=== PATIENT | female | born 1980 | race Caucasian/White ===

== ENCOUNTER 2016-09-17 12:30 | Emergency (ER) | payer BC ==
[2016-09-17] MEDS ORDERED: Ibuprofen TAB* 600 MG PO ONE (14:13)
--- NOTE | 2016-09-17 14:20 | ED ---
Headache - HPI Summary HPI Summary: 36 female presents with complaints of having an episode of hyperventilating, hands falling asleep, "head cevallos", and dizziness that last about 1 hour. Patient 's episode began 2 hours ago and has since resolved. Patient was seen at urgent care. Patient has a history of anxiety that she takes medication for however has not taken her amitryptiline for the past couple of days because she ran out. Patient also states she kissed her boyfriend who had a suboxone pill sublingual and was afraid she had a reaction to that as patient is very sensitive to medication, per patient. Denies chest pain, SOB, difficulty breathing, cough, fever/chills, numbness/tingling. Denies nausea and vomiting. Patient has no significant PMHx. She has a mild headache that she describes as pressure, diffuse and is significantly better. She feels much better she is just tired. No neuro deficit complaints. Denies visual changes, weakness, and any recent trauma/injury. - History Of Current Complaint Chief Complaint: EDGeneral Stated Complaint: DIZZY/SHAKEY / CHEST TIGHTNESS Time Seen by Provider: 09/17/16 13:45 Hx Obtained From: Patient Hx Last Menstrual Period: 08/24/16 Onset/Duration: Sudden Onset, Started hours ago, Resolved Currently Pain Is: Current Pain Scale(0-10)= - 3 Timing: Constant Character: Pressure, Typical Headache Location of Headache: Diffuse Aggravating Factor: Bright Lights Allevating Factors: Rest Associated Signs And Symptoms: Dizziness, Nausea - Allergies/Home Medications Allergies/Adverse Reactions: Allergies Allergy/AdvReac Type Severity Reaction Status Date / Time No Known Allergies Allergy Verified 12/18/15 09:16 PMH/Surg Hx/FS Hx/Imm Hx Endocrine/Hematology History: Denies: Hx Diabetes, Hx Thyroid Disease Cardiovascular History: Denies: Hx Hypertension, Other Cardiovascular Problems/Disorders - gallbladder removal 12/2010 Respiratory History: Denies: Hx Asthma, Hx Chronic Obstructive Pulmonary Disease (COPD) GI History: Denies: Hx Ulcer Psychiatric History: Reports: Hx Anxiety - takes prn benzos, Hx Depression - Surgical History Surgery Procedure, Year, and Place: greg Infectious Disease History: No Infectious Disease History: Denies: Hx Clostridium Difficile, Hx Hepatitis, Hx Human Immunodeficiency Virus (HIV), Hx of Known/Suspected MRSA, Hx Shingles, Hx Tuberculosis, Traveled Outside the [place] in Last 30 Days - Family History Known Family History: Positive: Cardiac Disease, Hypertension, Diabetes - Social History Alcohol Use: Daily Substance Use Type: Reports: None Smoking Status (MU): Never Smoked Tobacco Review of Systems Constitutional: Negative Eyes: Negative ENT: Negative Cardiovascular: Negative Positive: Other - hyperventilating, since resolved Positive: Nausea Genitourinary: Negative Neurological: Other - dizziness Positive: Headache All Other Systems Reviewed And Are Negative: Yes Physical Exam Triage Information Reviewed: Yes Vital Signs On Initial Exam: Initial Vitals Temp Pulse Resp BP Pulse Ox 98.5 F 96 20 154/100 100 09/17/16 12:33 09/17/16 12:33 09/17/16 12:33 09/17/16 12:33 09/17/16 12:33 patient was anxious upon arrival, BP improved during visit and was 138/90 at discharge. pulse 94bpm not 24 as accidentally typed. Vital Signs Reviewed: Yes Appearance: Positive: Well-Appearing, No Pain Distress, Well-Nourished Skin: Positive: Warm, Skin Color Reflects Adequate Perfusion, Dry Head/Face: Positive: Normal Head/Face Inspection. Negative: Temporal Artery Tenderness, TMJ Tenderness, Scalp Eyes: Positive: Normal, EOMI, XUAN, Conjunctiva Clear ENT: Positive: Normal ENT inspection, Hearing grossly normal, Pharynx normal, TMs normal. Negative: Pharyngeal erythema Dental: Negative: Percussion Tenderness @, Cervical Lymphadenopathy Neck: Positive: Supple, Nontender Respiratory/Lung Sounds: Positive: Clear to Auscultation, Breath Sounds Present. Negative: Rales, Rhonchi, Wheezes Cardiovascular: Positive: Normal, RRR, Pulses are Symmetrical in both Upper and Lower Extremities Abdomen Description: Positive: Nontender, No Organomegaly, Soft Bowel Sounds: Positive: Present Musculoskeletal: Positive: Normal, Strength/ROM Intact - all extremities. Negative: Limited @, Interruption @, Pain @, Edema Left, Edema Right Neurological: Positive: Normal, Sensory/Motor Intact - sensation, memory and concentration intact., Alert, Oriented to Person Place, Time, CN Intact II-III, Reflexes Intact, NV Bundle Intact Distally, Normal Gait, Rhomberg - negative, Heel to Toe - normal, Finger to Nose - normal, Facial Symmetry, Speech Normal. Negative: Facial Droop, Slurred Speech, Dysphagia Psychiatric: Positive: Normal AVPU Assessment: Alert - Joao Coma Scale Best Eye Response: 4 - Spontaneous Best Motor Response: 6 - Obeys Commands Best Verbal Response: 5 - Oriented Diagnostics - Vital Signs Vital Signs Temp Pulse Resp BP Pulse Ox 09/17/16 13:25 98.2 F 84 20 137/96 100 09/17/16 12:37 98.2 F 24 20 147/100 100 09/17/16 12:33 98.5 F 96 20 154/100 100 - Laboratory Lab Statement: Any lab studies that have been ordered have been reviewed, and results considered in the medical decision making process. Headache Course/Dx - Course Course Of Treatment: patients PE findings and vital signs were normal while in ED. No neurologic deficit or concern at this time. HPI symptoms had resolved and patient was feeling much better with a mild headache and feeling tired. Patient appears to had suffered a panic attack that has since improved. Has anxiety and has not taken her presribed amitryptiline for the past couple of days since she has been out. No concern for any emergent issues at this time, requiring further workup or imaging. Patient agreed and wanted to go home. Given ibuprofen for headache. Educated on worsening signs and symptoms to watch out for and to return for immediately. Follow up with primary care. Continue taking anxiety medication and speak with doctor about refill. Bp elevated upon arrival however improved during visit and once patient calmed down. Still recommended follow up for re-check wit PCP. - Diagnoses Differential Diagnosis/HQI/PQRI: Migraine, Sinus Headache, Tension Headache, Viral Syndrome, Other Provider Diagnoses: Panic attack, Anxiety, Headache Discharge - Discharge Plan Condition: Stable Disposition: HOME Patient Education Materials: Panic Attack (ED), General Headache (ED) Referrals: Talia Lee MD [Primary Care Provider] - Additional Instructions: Take ibuprofen OTC for pain and headache. If you have worsening symptoms or new symptoms please return to ED promptly such as worsening headache, chest pain, SOB, fever/chills, vomiting, visual changes, weakness. Rest and drink plenty of fluids. Follow up with PCP within 5-7 days and to re-check BP.
[2016-09-17 14:32] VITALS: BP 137/94
== END 2016-09-17 14:31 | disposition home or self-care (01) ==
LOC: ED 12:30
DX: F41.0 Panic disorder [episodic paroxysmal anxiety] (principal); R51 Headache
CPT/HCPCS: 93005; 99282; A9270-GY

== ENCOUNTER 2017-01-23 16:36 | Emergency (ER) | payer BC ==
[2017-01-23 18:15] LABS: Hematocrit 36 % (35-47); Mean Corpuscular HGB Conc 33 g/dl (31-36); Mean Corpuscular Hemoglobin 30 pg (27-31); Mean Corpuscular Volume 91 fL (80-97); Mean Platelet Volume 7 um3 (7.4-10.4); Red Blood Count 3.97 10^6/ul (4.0-5.4); Red Cell Distribution Width 13 % (10.5-15); White Blood Count 7.4 10^3/ul (3.5-10.8)
[2017-01-23 18:32] LABS: Albumin 3.9 g/dL (3.2-5.2); BUN/Creatinine Ratio 10.7 (8-20); C Reactive Protein 131.36 mg/L (< 5.00); Calcium 9.2 mg/dL (8.6-10.3); EGFR African American 110.6 (>60); Globulin 3.4 g/dL (2-4); Potassium 3.8 mmol/L (3.5-5.0); Total Bilirubin 0.2 mg/dL (0.2-1.0); Total Protein 7.3 g/dL (6.4-8.9)
--- NOTE | 2017-01-23 18:33 | RAD ---
Indication: Right upper quadrant pain. Real-time sonography of the right upper quadrant was performed. The liver measures 17.8 cm in length. There are small echogenic masses scattered throughout the neena hepatis and right lobe of liver which may represent small hemangiomas. However these were not identified previously. Correlation with MR could BE performed for further evaluation. The common duct measures 3 mm. The patient is status post cholecystectomy. The right kidney measures 10.8 x 4.7 x 4.5 cm with prominent right caliectasis. The pancreatic head, neck and proximal body demonstrates no mass or pancreatic duct dilatation. IMPRESSION: Patient is status post cholecystectomy. Echogenic masses in the right lobe of liver and neena hepatis may represent small hemangiomas. Nonemergent MRI could BE performed for further evaluation.
[2017-01-23 18:38] LABS: Urine Bacteria Absent (Absent); Urine Bilirubin Negative (Negative); Urine Glucose Negative (Negative); Urine Nitrite Negative (Negative)
[2017-01-23 20:09] VITALS: BP 128/92
--- NOTE | 2017-01-23 21:26 | ED ---
Gail Chavira Edward, scribed for Almas Martinez MD on 01/23/17 at 1701 . Abdominal Pain/Female - HPI Summary HPI Summary: 37 y/o female presents to ED c/o intermittent ABD pain in the RUQ that radiates into her R shoulder starting two days ago. The pain is described as a soreness. It is aggravated with food and coffee especially. Pt had a fever 2 nights ago. Associated sx: nausea, diarrhea, belching. SHx hernia repair, cholecystectomy. - History of Current Complaint Chief Complaint: EDAbdPain Stated Complaint: SHARP ABD PAIN Time Seen by Provider: 01/23/17 16:55 Hx Obtained From: Patient Hx Last Menstrual Period: 08/24/16 Onset/Duration: Lasting Days Timing: Intermittent Episode Lasting Pain Intensity: 0 Location: Discrete At: RUQ, Epigastric Radiates: Yes Radiates to: Other - R shoulder Character: Other: - soreness Aggravating Factor(s): Food - and coffee especially Associated Signs and Symptoms: Positive: Fever, Nausea, Diarrhea, Other: - belching Allergies/Adverse Reactions: Allergies Allergy/AdvReac Type Severity Reaction Status Date / Time No Known Allergies Allergy Verified 01/23/17 16:44 PMH/Surg Hx/FS Hx/Imm Hx Previously Healthy: No Endocrine/Hematology History: Denies: Hx Diabetes, Hx Thyroid Disease Cardiovascular History: Denies: Hx Hypertension, Other Cardiovascular Problems/Disorders - gallbladder removal 12/2010 Respiratory History: Denies: Hx Asthma, Hx Chronic Obstructive Pulmonary Disease (COPD) GI History: Denies: Hx Ulcer Psychiatric History: Reports: Hx Anxiety - takes prn benzos, Hx Depression - Surgical History Surgery Procedure, Year, and Place: greg Infectious Disease History: No Infectious Disease History: Denies: Hx Clostridium Difficile, Hx Hepatitis, Hx Human Immunodeficiency Virus (HIV), Hx of Known/Suspected MRSA, Hx Shingles, Hx Tuberculosis, Traveled Outside the [place] in Last 30 Days - Family History Known Family History: Positive: Cardiac Disease, Hypertension, Diabetes - Social History Alcohol Use: Daily Hx Substance Use: No Substance Use Type: Reports: None Hx Tobacco Use: No Smoking Status (MU): Never Smoked Tobacco Review of Systems Positive: Fever Eyes: Negative ENT: Negative Cardiovascular: Negative Respiratory: Negative Positive: Abdominal Pain, Diarrhea, Nausea, Other - Belching Genitourinary: Negative Musculoskeletal: Negative Skin: Negative Neurological: Negative Psychological: Normal All Other Systems Reviewed And Are Negative: Yes Physical Exam Triage Information Reviewed: Yes Vital Signs On Initial Exam: Initial Vitals Temp Pulse Resp BP Pulse Ox 97.0 F 93 17 135/94 99 01/23/17 16:39 01/23/17 16:39 01/23/17 16:39 01/23/17 16:39 01/23/17 16:39 Vital Signs Reviewed: Yes Appearance: Positive: Well-Appearing, No Pain Distress Skin: Positive: Warm, Skin Color Reflects Adequate Perfusion, Dry, Other - No icterus. Head/Face: Positive: Normal Head/Face Inspection Eyes: Positive: Normal ENT: Positive: Normal ENT inspection Neck: Positive: Supple, Nontender Respiratory/Lung Sounds: Positive: Clear to Auscultation, Breath Sounds Present Cardiovascular: Positive: RRR Abdomen Description: Positive: Soft, Other: - Tender @ RUQ and less so @ epigastrium. Bowel Sounds: Positive: Present Diagnostics - Vital Signs Vital Signs Temp Pulse Resp BP Pulse Ox 01/23/17 16:39 97.0 F 93 17 135/94 99 - Laboratory Lab Results: Lab Results 01/23/17 01/23/17 01/23/17 Range/Units 17:28 17:28 17:28 WBC 7.4 (3.5-10.8) 10^3/ul RBC 3.97 L (4.0-5.4) 10^6/ul Hgb 12.0 (12.0-16.0) g/dl Hct 36 (35-47) % MCV 91 (80-97) fL MCH 30 (27-31) pg MCHC 33 (31-36) g/dl RDW 13 (10.5-15) % Plt Count 372 (150-450) 10^3/ul MPV 7 L (7.4-10.4) um3 Neut % (Auto) 52.0 (38-83) % Lymph % (Auto) 37.0 (25-47) % [place] % (Auto) 7.1 (1-9) % Eos % (Auto) 1.9 (0-6) % Baso % (Auto) 2.0 (0-2) % Absolute Neuts (auto) 3.8 (1.5-7.7) 10^3/ul Absolute Lymphs (auto) 2.7 (1.0-4.8) 10^3/ul Absolute Monos (auto) 0.5 (0-0.8) 10^3/ul Absolute Eos (auto) 0.1 (0-0.6) 10^3/ul Absolute Basos (auto) 0.1 (0-0.2) 10^3/ul Absolute Nucleated RBC 0 10^3/ul Nucleated RBC % 0 Sodium 135 (133-145) mmol/L Potassium 3.8 (3.5-5.0) mmol/L Chloride 104 (101-111) mmol/L Carbon Dioxide 25 (22-32) mmol/L Anion Gap 6 (2-11) mmol/L BUN 8 (6-24) mg/dL Creatinine 0.75 (0.51-0.95) mg/dL Est GFR ( Amer) 110.6 (>60) Est GFR (Non-Af Amer) 86.0 (>60) BUN/Creatinine Ratio 10.7 (8-20) Glucose 104 H (70-100) mg/dL Lactic Acid 1.0 (0.5-2.0) mmol/L Calcium 9.2 (8.6-10.3) mg/dL Total Bilirubin 0.20 (0.2-1.0) mg/dL AST 13 (13-39) U/L ALT 18 (7-52) U/L Alkaline Phosphatase 53 (34-104) U/L C-Reactive Protein 131.36 H (< 5.00) mg/L Total Protein 7.3 (6.4-8.9) g/dL Albumin 3.9 (3.2-5.2) g/dL Globulin 3.4 (2-4) g/dL Albumin/Globulin Ratio 1.1 (1-3) Lipase 41 (11.0-82.0) U/L Beta HCG, Quant 0.82 mIU/mL Urine Color Urine Appearance Urine pH (5-9) Ur Specific [place] (1.010-1.030) Urine Protein (Negative) Urine Ketones (Negative) Urine Blood (Negative) Urine Nitrate (Negative) Urine Bilirubin (Negative) Urine Urobilinogen (Negative) Ur Leukocyte Esterase (Negative) Urine WBC (Auto) (Absent) Urine RBC (Auto) (Absent) Ur Squamous Epith Cells (Absent) Urine Bacteria (Absent) Urine Glucose (Negative) 09/24/17 Range/Units 18:07 WBC (3.5-10.8) 10^3/ul RBC (4.0-5.4) 10^6/ul Hgb (12.0-16.0) g/dl Hct (35-47) % MCV (80-97) fL MCH (27-31) pg MCHC (31-36) g/dl RDW (10.5-15) % Plt Count (150-450) 10^3/ul MPV (7.4-10.4) um3 Neut % (Auto) (38-83) % Lymph % (Auto) (25-47) % [place] % (Auto) (1-9) % Eos % (Auto) (0-6) % Baso % (Auto) (0-2) % Absolute Neuts (auto) (1.5-7.7) 10^3/ul Absolute Lymphs (auto) (1.0-4.8) 10^3/ul Absolute Monos (auto) (0-0.8) 10^3/ul Absolute Eos (auto) (0-0.6) 10^3/ul Absolute Basos (auto) (0-0.2) 10^3/ul Absolute Nucleated RBC 10^3/ul Nucleated RBC % Sodium (133-145) mmol/L Potassium (3.5-5.0) mmol/L Chloride (101-111) mmol/L Carbon Dioxide (22-32) mmol/L Anion Gap (2-11) mmol/L BUN (6-24) mg/dL Creatinine (0.51-0.95) mg/dL Est GFR ( Amer) (>60) Est GFR (Non-Af Amer) (>60) BUN/Creatinine Ratio (8-20) Glucose (70-100) mg/dL Lactic Acid (0.5-2.0) mmol/L Calcium (8.6-10.3) mg/dL Total Bilirubin (0.2-1.0) mg/dL AST (13-39) U/L ALT (7-52) U/L Alkaline Phosphatase (34-104) U/L C-Reactive Protein (< 5.00) mg/L Total Protein (6.4-8.9) g/dL Albumin (3.2-5.2) g/dL Globulin (2-4) g/dL Albumin/Globulin Ratio (1-3) Lipase (11.0-82.0) U/L Beta HCG, Quant mIU/mL Urine Color Straw Urine Appearance Cloudy Urine pH 8.0 (5-9) Ur Specific [place] 1.003 L (1.010-1.030) Urine Protein Negative (Negative) Urine Ketones Negative (Negative) Urine Blood 2+ H (Negative) Urine Nitrate Negative (Negative) Urine Bilirubin Negative (Negative) Urine Urobilinogen Negative (Negative) Ur Leukocyte Esterase Trace H (Negative) Urine WBC (Auto) Trace(0-5/hpf) (Absent) Urine RBC (Auto) Absent (Absent) Ur Squamous Epith Cells Present H (Absent) Urine Bacteria Absent (Absent) Urine Glucose Negative (Negative) Result Diagrams: 01/23/17 17:28 01/23/17 17:28 Lab Statement: Any lab studies that have been ordered have been reviewed, and results considered in the medical decision making process. - Ultrasound No standard instances Ultrasound Interpretation: Positive (See Comments) - LIVER ULTRASOUND - Patient is status post cholecystectomy. Echogenic masses in the right lobe of liver and neena hepatis may represent small hemangiomas. Nonemergent MRI could BE performed for further evaluation. Ultrasound Interpretation Completed By: Radiologist Re-Evaluation - Re-Evaluation 1 Re-Evaluation Time: 19:03 Comment: Discuss US results Abdominal Pain Fem Course/Dx - Course Course Of Treatment: Ms. Estevez has had a couple of days of epigastrid and RUQ pain intermittently. It was worsened by drinking coffee and got worse about 15 minutes after eating some solid food. An U/S showed no CBD dilation (she is S/P cholecyctectomy). Labs were OK. This is likely gastritis or duodenitis and I will try a short course of omeprazole and close F/U. - Diagnoses Provider Diagnoses: Epigastric pain Discharge - Discharge Plan Condition: Stable Disposition: HOME Prescriptions: Omeprazole CAP* [Prilosec CAP* 20 MG] 20 mg PO BID #20 cap. Patient Education Materials: Epigastric Pain (ED) Referrals: Talia Lee MD [Primary Care Provider] - 3 Days (PLEASE F/U IN 2-3 DAYS) The documentation as recorded by the Gail finnegan Edward accurately reflects the service I personally performed and the decisions made by me, Almas Martinez MD.
== END 2017-01-23 19:35 | disposition home or self-care (01) ==
LOC: ED 16:36
DX: R10.13 Epigastric pain (principal); R50.9 Fever, unspecified; R11.0 Nausea; R19.7 Diarrhea, unspecified; R10.11 Right upper quadrant pain
CPT/HCPCS: 36415; 76705; 80053; 81003; 81015; 83605; 83690; 84702; 85025; 86140; 87086; 99283

== ENCOUNTER 2018-07-07 07:20 | Emergency (ER) | payer BC ==
[2018-07-07 07:35] VITALS: BP 123/75
--- NOTE | 2018-07-07 07:51 | UC ---
FLU HPI - HPI Summary HPI Summary: 5 DAYS OF OVERALL MALAISE, FATIGUE, COUGH, CONGESTION, ST, LEFT EAR PAIN, SUBJECTIVE FEVER AND CHILLS. PARTNER HAD FLU 2 WEEKS AGO. FEELS SHE IS GETTING WORSE. TOOK IBUPROFEN 1 HOUR [employer]. - History of Current Complaint Chief Complaint: UCRespiratory Stated Complaint: EARS/THROAT Time Seen by Provider: 07/07/18 07:36 Hx Obtained From: Patient Hx Last Menstrual Period: 06/26/18 Onset/Duration: Gradual Onset, Lasting Days, Still Present Severity Currently: Moderate Severity Initially: Moderate Pain Intensity: 2 Pain Scale Used: 0-10 Numeric Associated Signs & Symptoms: Positive: Fever, Myalgia, Cough, Sore Throat, Nasal Congestion - Allergy/Home Medications Allergies/Adverse Reactions: Allergies Allergy/AdvReac Type Severity Reaction Status Date / Time No Known Allergies Allergy Verified 03/11/17 09:51 Home Medications: Home Medications Ibuprofen 400 mg PO ONCE PRN 07/07/18 [History Confirmed 07/07/18] Levonorgestrel-Ethin Estradiol [Orsythia-28 Tablet] 1 tab PO DAILY 07/07/18 [ History Confirmed 07/07/18] Pseudoephedrine HCl [Sudafed 12 Hour] 1 tab PO ONCE PRN 07/07/18 [History Confirmed 07/07/18] clonazePAM [Klonopin] 1.5 mg PO QPM PRN 07/07/18 [History Confirmed 07/07/18] PMH/Surg Hx/FS Hx/Imm Hx - Additional Past Medical History Additional PMH: SLEEP APNEA ON CPAP Psychological History: Anxiety, Depression - Surgical History Surgical History: Yes Surgery Procedure, Year, and Place: cholecystectomy - Family History Known Family History: Positive: Cardiac Disease, Hypertension, Diabetes - Social History Alcohol Use: Daily Alcohol Amount: 1 drink after work most days Substance Use Type: None Smoking Status (MU): Never Smoked Tobacco Review of Systems All Other Systems Reviewed And Are Negative: Yes Constitutional: Positive: Fever, Chills, Fatigue ENT: Positive: Sore Throat, Ear Ache, Nasal Discharge Respiratory: Positive: Cough Cardiovascular: Positive: Negative Gastrointestinal: Positive: Negative Musculoskeletal: Positive: Myalgia Neurological: Positive: Headache Physical Exam Triage Information Reviewed: Yes Appearance: No Pain Distress, Well-Nourished, Ill-Appearing - MILD Vital Signs: Initial Vital Signs Temp 98.1 F 07/07/18 07:27 Pulse 95 07/07/18 07:27 Resp 18 07/07/18 07:27 BP 123/75 07/07/18 07:27 Pulse Ox 97 07/07/18 07:27 Vital Signs Reviewed: Yes Eyes: Positive: Conjunctiva Clear ENT: Positive: Hearing grossly normal, Pharynx normal, Other - RIGHT TM NORMAL. LEFT TM ERYTHEMATOUS, BULGING Neck: Positive: Supple, Nontender, No Lymphadenopathy Respiratory Exam: Normal Cardiovascular Exam: Normal Abdomen Description: Positive: Soft Musculoskeletal: Positive: No Edema Neurological: Positive: Alert Psychological: Positive: Age Appropriate Behavior Skin: Negative: Rashes Flu Course/Dx - Differential Dx/Diagnosis Provider Diagnosis: Left otitis media, Acute viral syndrome Discharge - Sign-Out/Discharge Documenting (check all that apply): Patient Departure All imaging exams completed and their final reports reviewed: No Studies - Discharge Plan Condition: Stable Disposition: HOME Prescriptions: Amoxicillin PO (*) [Amoxicillin 500 MG CAP*] 1,000 mg PO Q12H #40 cap Fluconazole 150 MG (NF) [Diflucan 150 mg (NF)] 150 mg PO ONCE #2 tab Patient Education Materials: Ear Infection (ED), Viral Syndrome (ED) Forms: *Work Release Referrals: Talia Lee MD [Primary Care Provider] - If Needed - Billing Disposition and Condition Condition: STABLE Disposition: Home
== END 2018-07-07 08:03 | disposition home or self-care (01) ==
LOC: UCEAST 07:20
DX: H66.92 Otitis media, unspecified, left ear (principal); B34.9 Viral infection, unspecified; R05 Cough; J02.9 Acute pharyngitis, unspecified; M79.10 Myalgia, unspecified site; R09.81 Nasal congestion; R53.81 Other malaise
CPT/HCPCS: 99212; G0463

== ENCOUNTER 2019-03-02 12:37 | Emergency (ER) | payer BC ==
[2019-03-02 16:05] LABS: ABS Basophils 0.1 10^3/ul (0-0.2); ABS Lymphocytes 2.1 10^3/ul (1.0-4.8); ABS Monocytes 0.5 10^3/ul (0-0.8); ABS Neutrophils 6.4 10^3/ul (1.5-7.7); Eosinophil % 0.4 %; Hematocrit 41 % (35-47); Hemoglobin 13.6 g/dL (12.0-16.0); Lymphocyte % 23.3 %; Mean Corpuscular HGB Conc 34 g/dL (31-36); Mean Corpuscular Hemoglobin 31 pg (27-31); Mean Corpuscular Volume 92 fL (80-97); Mean Platelet Volume 6.2 fL (7.4-10.4); Platelet Count 387 10^3/uL (150-450); Red Blood Count 4.42 10^6 /uL (3.70-4.87); Red Cell Distribution Width 13 % (10-15); White Blood Count 9.2 10^3/uL (3.5-10.8)
[2019-03-02 16:24] LABS: ALT 17 U/L (7-52); AST 16 U/L (13-39); Albumin 4.7 g/dL (3.2-5.2); Albumin/Globulin Ratio 1.4 (1-3); Alkaline Phosphatase 56 U/L (34-104); Anion Gap 7 mmol/L (2-11); BUN/Creatinine Ratio 11.5 (8-20); Blood Urea Nitrogen 7 mg/dL (6-24); CO2 Carbon Dioxide 25 mmol/L (22-32); Calcium 9.4 mg/dL (8.6-10.3); Chloride 100 mmol/L (101-111); EGFR African American 130.8 (>60); EGFR Non-African American 108.1 (>60); Globulin 3.3 g/dL (2-4); Glucose 108 mg/dL (70-100); Potassium 4.3 mmol/L (3.5-5.0); Sodium 132 mmol/L (135-145)
[2019-03-02 16:28] LABS: HCG Pregnancy < 0.60 mIU/mL
[2019-03-02] MEDS ORDERED: Ketorolac INJ* 30 MG/ML 1 ML VIAL IV PUSH ONE (16:30)
[2019-03-02] MEDS ORDERED: PROCHLORPERAZINE INJ 5 MG/ML 2 ML VIAL IV ONE (16:30)
[2019-03-02] MEDS ORDERED: diPHENhydraMINE IV* 50 MG/ML 1 ml VIAL (BENADRYL) IV ONE (16:30)
[2019-03-02] MEDS ORDERED: NS 0.9% 1000 ML** 1,000 ML IV ONE ×2 (16:30→17:28)
--- NOTE | 2019-03-02 17:29 | ED ---
Throat Pain/Nasal Congestion - HPI Summary HPI Summary: 39-year-old female presents with recurrent ear pain for the past couple weeks. States she was on two course of antibiotics. Was diagnosed with an ear infection and sinus infection. She is currently on doxycycline. States she's had no improvement. States she's been having headaches but not the worst headache of her life. She has been having occasional fevers. She states has history of migraines and this is not the worst headache of her life. States has some neck pain. She admits to occasional sore throat. No cough. No chest pain shortness breath. No abdominal pain. Admits to nausea and vomiting. Does have a history of ear issues. - History of Current Complaint Chief Complaint: EDEarPain Time Seen by Provider: 03/02/19 16:07 - Allergies/Home Medications Allergies/Adverse Reactions: Allergies Allergy/AdvReac Type Severity Reaction Status Date / Time No Known Allergies Allergy Verified 03/02/19 12:45 Home Medications: Home Medications Amitriptyline TAB* [Elavil TAB*] 12.5 - 25 mg PO BEDTIME 03/02/19 [History Confirmed 03/02/19] Doxycycline Hyclate 100 mg PO BID 03/02/19 [History Confirmed 03/02/19] PMH/Surg Hx/FS Hx/Imm Hx Endocrine/Hematology History: Denies: Hx Diabetes, Hx Thyroid Disease Cardiovascular History: Denies: Hx Hypertension, Hx Pacemaker/ICD, Other Cardiovascular Problems/ Disorders - gallbladder removal 12/2010 Respiratory History: Denies: Hx Asthma, Hx Chronic Obstructive Pulmonary Disease (COPD) GI History: Denies: Hx Ulcer History: Denies: Hx Renal Disease Sensory History: Denies: Hx Hearing Aid Psychiatric History: Reports: Hx Anxiety - takes prn benzos, Hx Depression, Hx Panic Disorder - ANXIETY - Surgical History Surgery Procedure, Year, and Place: cholecystectomy - Immunization History Date of Influenza Vaccine: 01/28/2019 Immunizations Up to Date: Yes Infectious Disease History: No Infectious Disease History: Denies: Hx Clostridium Difficile, Hx Hepatitis, Hx Human Immunodeficiency Virus (HIV), Hx of Known/Suspected MRSA, Hx Shingles, Hx Tuberculosis, Traveled Outside the [place] in Last 30 Days - Family History Known Family History: Positive: Cardiac Disease, Hypertension, Diabetes - Social History Alcohol Use: Daily Alcohol Amount: 1 drink after work most days Hx Substance Use: No Substance Use Type: Reports: None Hx Tobacco Use: No Smoking Status (MU): Never Smoked Tobacco Review of Systems Negative: Fever Positive: Ear Ache, Nasal Discharge Negative: Chest Pain Negative: Shortness Of Breath Positive: Headache All Other Systems Reviewed And Are Negative: Yes Physical Exam Triage Information Reviewed: Yes Vital Signs On Initial Exam: Initial Vitals Temp Pulse Resp BP Pulse Ox 97.8 F 105 18 165/110 97 03/02/19 12:42 03/02/19 12:42 03/02/19 12:42 03/02/19 12:42 03/02/19 12:42 Vital Signs Reviewed: Yes Appearance: Positive: Well-Appearing Skin: Positive: Warm, Dry Head/Face: Positive: Normal Head/Face Inspection Eyes: Positive: Normal, EOMI, XUAN, Conjunctiva Clear ENT: Positive: Pharynx normal, TMs normal - fluid behind bilateral, Other - no erythema to mastoid process. Negative: TM bulging, TM red Respiratory/Lung Sounds: Positive: Clear to Auscultation, Breath Sounds Present Cardiovascular: Positive: Normal, RRR Musculoskeletal: Positive: Normal Neurological: Positive: Normal Psychiatric: Positive: Normal Procedures - Sedation Patient Received Moderate/Deep Sedation with Procedure: No Diagnostics - Vital Signs Vital Signs Temp Pulse Resp BP Pulse Ox 03/02/19 17:18 123 167/118 98 03/02/19 17:00 97 96 03/02/19 16:00 88 98 03/02/19 15:55 94 98 03/02/19 15:53 86 166/129 97 03/02/19 14:22 97.8 F 98 20 164/116 97 03/02/19 12:42 97.8 F 105 18 165/110 97 - Laboratory Lab Results: Lab Results 03/02/19 03/02/19 03/02/19 Range/Units 15:52 15:52 15:52 WBC 9.2 (3.5-10.8) 10^3/uL RBC 4.42 (3.70-4.87) 10^6 /uL Hgb 13.6 (12.0-16.0) g/dL Hct 41 (35-47) % MCV 92 (80-97) fL MCH 31 (27-31) pg MCHC 34 (31-36) g/dL RDW 13 (10-15) % Plt Count 387 (150-450) 10^3/uL MPV 6.2 L (7.4-10.4) fL Neut % (Auto) 70.1 % Lymph % (Auto) 23.3 % Mchenry % (Auto) 5.6 % Eos % (Auto) 0.4 % Baso % (Auto) 0.6 % Absolute Neuts (auto) 6.4 (1.5-7.7) 10^3/ul Absolute Lymphs (auto) 2.1 (1.0-4.8) 10^3/ul Absolute Monos (auto) 0.5 (0-0.8) 10^3/ul Absolute Eos (auto) 0.0 (0-0.6) 10^3/ul Absolute Basos (auto) 0.1 (0-0.2) 10^3/ul Absolute Nucleated RBC 0.0 10^3/ul Nucleated RBC % 0.0 Sodium 132 L (135-145) mmol/L Potassium 4.3 (3.5-5.0) mmol/L Chloride 100 L (101-111) mmol/L Carbon Dioxide 25 (22-32) mmol/L Anion Gap 7 (2-11) mmol/L BUN 7 (6-24) mg/dL Creatinine 0.61 (0.51-0.95) mg/dL Est GFR ( Amer) 130.8 (>60) Est GFR (Non-Af Amer) 108.1 (>60) BUN/Creatinine Ratio 11.5 (8-20) Glucose 108 H (70-100) mg/dL Lactic Acid 1.3 (0.5-2.0) mmol/L Calcium 9.4 (8.6-10.3) mg/dL Total Bilirubin 0.40 (0.2-1.0) mg/dL AST 16 (13-39) U/L ALT 17 (7-52) U/L Alkaline Phosphatase 56 (34-104) U/L C-Reactive Protein 8.50 H (<8.01) mg/L Total Protein 8.0 (6.4-8.9) g/dL Albumin 4.7 (3.2-5.2) g/dL Globulin 3.3 (2-4) g/dL Albumin/Globulin Ratio 1.4 (1-3) Beta HCG, Quant < 0.60 mIU/mL Result Diagrams: 03/02/19 15:52 03/02/19 15:52 Lab Statement: Any lab studies that have been ordered have been reviewed, and results considered in the medical decision making process. Re-Evaluation - Re-Evaluation First Eval Re-Evaluation Time: 17:29 Comment: legs jittery Second Eval Re-Evaluation Time: 18:22 Change: Improved Comment: feeling better EENT Course/Dx - Course Course Of Treatment: 39-year-old female presents with recurrent ear pain for the past couple weeks. States she was on two course of antibiotics. Was diagnosed with an ear infection and sinus infection. She is currently on doxycycline. States she's had no improvement. States she's been having headaches but not the worst headache of her life. She has been having occasional fevers. She states has history of migraines and this is not the worst headache of her life. States has some neck pain. She admits to occasional sore throat. No cough. No chest pain shortness breath. No abdominal pain. Admits to nausea and vomiting. Does have a history of ear issues. On exam lungs clear to auscultation. Ears TMs normal with fluid behind them. Negative nuchal rigidity. Sinus congestion noted. White blood count normal. CRP is only slightly elevated. With essentially normal lab work do not suspect anything such as mastoiditis is occurring. Gave migraine cocktail with some improvement after patient got some leg jitteriness. Patient states that there is just a lot of pressure in ears bilateral. Patient is currently taking Rhinocort. Told to add on Sudafed we'll add on some steroids. Told to follow-up with ENT. gave short course of pain medication. Patient understands agrees with plan. - Differential Diagnoses Differential Diagnoses: Mastoiditis, Otitis Externa, Otitis Media, Sinusitis - Diagnoses Provider Diagnoses: Sinusitis, Fluid level behind tympanic membrane Discharge ED - Sign-Out/Discharge Documenting (check all that apply): Patient Departure - Discharge Plan Condition: Good Disposition: HOME Prescriptions: HYDROcodone/ACETAMIN 5-325 MG* [[place] 5-325 TAB*] 1 tab PO Q8H PRN #9 tab MDD 3 PRN Reason: Pain - Severe predniSONE TAB* [Deltasone TAB*] 50 mg PO DAILY #4 tab Patient Education Materials: Sinusitis (ED) Referrals: Talia Lee MD [Primary Care Provider] - Clem Stacy MD [Medical Doctor] - Additional Instructions: Use saline spray in nose as much as needed add on sudafed Take prednisone once a day for 4 days Take Tylenol or ibuprofen for headache every 6 hours, use norco every 6 hours for severe pain Follow up with primary in 5 days follow up with ENT Return to ED if develop any new or worsening symptoms - Billing Disposition and Condition Condition: GOOD Disposition: Home
[2019-03-02] MEDS ORDERED: predniSONE TAB* 20 MG PO ONE (18:26)
[2019-03-02] MEDS ORDERED: HYDROcodone/ACETAMIN 5-325 MG* 1 TAB PO ONE (18:26)
[2019-03-02 19:07] VITALS: BP 146/90
== END 2019-03-02 19:11 | disposition home or self-care (01) ==
LOC: ED 12:37
DX: H93.8X3 Other specified disorders of ear, bilateral (principal); J32.9 Chronic sinusitis, unspecified; F41.9 Anxiety disorder, unspecified; F32.9 Major depressive disorder, single episode, unspecified; Z90.49 Acquired absence of other specified parts of digestive tract; Z79.899 Other long term (current) drug therapy
CPT/HCPCS: 36415; 80053; 83605; 84702; 85025; 86140; 86618; 96374; 96375; 99283; J0780; J1200; J1885

== ENCOUNTER 2019-03-05 09:29 | Inpatient (IN) | payer BC ==
--- NOTE | 2019-03-05 10:18 | ED ---
Headache - HPI Summary HPI Summary: Patient is a 39 y/o F presenting to the ED for a chief complaint of headache. Patient is present with her mother. Patient reports neck pain, more on the left than right, decreased ROM of the neck, neck stiffness, a rash on the back of the neck, blurry vision, photophobia, cough, urinary frequency, and bilateral ear pain. Patient describes the headache and bilateral ear pain as pressure which worsens when lying down. Patient denies any fever, chills, erythema of eyes, nasal drainage, sore throat, CP, SOB, abdominal pain, N/V, dysuria, hematuria, edema, or dizziness. Patient sees Dr. Talia Lee and had a BP of 172/120 during her last visit. On 03/02/19, patient was seen at [facility] for similar symptoms and given a "headache cocktail" with subsequent tremors after being given the medications. Patient has a PMHx of anxiety, depression, and ocular headaches that occasionally coincide with menstrual periods. Patient also has a FMHx of HTN. Patient is currently taking oral contraceptives and doxycycline for a bilateral ear infection and sinusitis. - History Of Current Complaint Chief Complaint: EDHeadache Stated Complaint: HEAD PRESSURE/HIGH BP/RASH ON NECK PER PT Time Seen by Provider: 03/05/19 09:37 Hx Obtained From: Patient Hx Last Menstrual Period: 06/26/18 Onset/Duration: Sudden Onset, Started days ago - Since 03/02/19, Still Present Initially Headache Was: Moderate Currently Pain Is: Moderate Timing: Constant, Days - Since 03/02/19 Character: Pressure Location of Headache: Diffuse Aggravating Factor: Nothing Allevating Factors: Nothing Associated Signs And Symptoms: Neck Pain, Neck Stiffness, Decreased LOC - Neck, Visual Changes - Positive photophobia - Allergies/Home Medications Allergies/Adverse Reactions: Allergies Allergy/AdvReac Type Severity Reaction Status Date / Time No Known Allergies Allergy Verified 03/05/19 09:35 PMH/Surg Hx/FS Hx/Imm Hx Previously Healthy: Yes Endocrine/Hematology History: Denies: Hx Diabetes, Hx Thyroid Disease Cardiovascular History: Denies: Hx Hypercholesterolemia, Hx Hypertension, Hx Pacemaker/ICD, Other Cardiovascular Problems/Disorders - gallbladder removal 12/2010 Respiratory History: Denies: Hx Asthma, Hx Chronic Obstructive Pulmonary Disease (COPD) GI History: Denies: Hx Ulcer History: Denies: Hx Renal Disease Sensory History: Denies: Hx Legally Blind, Hx Deafness, Hx Hearing Aid Opthamlomology History: Denies: Hx Legally Blind EENT History: Denies: Hx Deafness Psychiatric History: Reports: Hx Anxiety - takes prn benzos, Hx Depression, Hx Panic Disorder - ANXIETY - Surgical History Surgical History: Yes Surgery Procedure, Year, and Place: cholecystectomy - Immunization History Date of Influenza Vaccine: 01/28/2019 Infectious Disease History: No Infectious Disease History: Denies: Hx Clostridium Difficile, Hx Hepatitis, Hx Human Immunodeficiency Virus (HIV), Hx of Known/Suspected MRSA, Hx Shingles, Hx Tuberculosis, Traveled Outside the [place] in Last 30 Days - Family History Known Family History: Positive: Cardiac Disease, Hypertension, Diabetes - Social History Occupation: Unemployed Lives: With Family Alcohol Use: Daily Alcohol Amount: 1 drink after work most days Hx Substance Use: No Substance Use Type: Reports: None Hx Tobacco Use: No Smoking Status (MU): Never Smoked Tobacco Review of Systems Negative: Fever, Chills Positive: Photophobia, Blurred Vision. Negative: Erythema Positive: Ear Ache. Negative: Sore Throat, Nasal Discharge Negative: Chest Pain Positive: Cough. Negative: Shortness Of Breath Negative: Abdominal Pain, Vomiting, Nausea Positive: frequency - Urinary. Negative: dysuria, hematuria Positive: Myalgia - Neck, Decreased ROM - Neck. Negative: Edema Positive: Rash - Back of the neck Neurological: Other - Negative dizziness Positive: Headache All Other Systems Reviewed And Are Negative: Yes Physical Exam - Summary Physical Exam Summary: Constitutional: Well-developed, Well-nourished, Alert. (-) Distressed Skin: Warm, Dry HENT: Normocephalic; Atraumatic. No sinus tenderness, bilateral TM erythema without bulging. Eyes: Conjunctiva normal Neck: Musculoskeletal ROM normal neck. (-) JVD, (-) Stridor, (-) Tracheal deviation Cardio: Rhythm regular, rate normal, Heart sounds normal; Intact distal pulses; The pedal pulses are 2+ and symmetric. Radial pulses are 2+ and symmetric. (-) Murmur Pulmonary/Chest wall: Effort normal. (-) Respiratory distress, (-) Wheezes, (-) Rales Abd: Soft. (-) Tenderness, (-) Distension, (-) Guarding, (-) Rebound Musculoskeletal: (-) Edema Lymph: (-) Cervical adenopathy Neuro: Alert, Oriented x3, Strength normal, Cranial nerves II-XII are grossly intact. (-) Dysmetria, (-) Nystagmus, (-) Ataxia by finger to nose testing, (-) Sensory deficit. Psych: Mood and affect Normal Triage Information Reviewed: Yes Vital Signs On Initial Exam: Initial Vitals Temp Pulse Resp BP Pulse Ox 97.8 F 87 18 213/141 98 03/05/19 09:33 03/05/19 09:33 03/05/19 09:33 03/05/19 09:33 03/05/19 09:33 Vital Signs Reviewed: Yes - Joao Coma Scale Best Eye Response: 4 - Spontaneous Best Motor Response: 6 - Obeys Commands Best Verbal Response: 5 - Oriented Coma Scale Total: 15 Procedures - Sedation Patient Received Moderate/Deep Sedation with Procedure: No - Lumbar Puncture Midline Position: Lateral Decubitus Aseptic Technique: Local Anesthesia Anesthesia Used: 1.0% Lido - 4 ml Spinal Needle Used: 22 Gauge - 3.5 inch Lumbar Puncture Note: Opening pressure of 19 cm of water. Fluid was clear. Tube 2 filled shelter and the flow spontaneously stopped. Repositioning of the spinal needle resumed the flow and with a small amount of blood from traumatic insertion. Diagnostics - Vital Signs Vital Signs Temp Pulse Resp BP Pulse Ox 03/05/19 09:33 97.8 F 87 18 213/141 98 - Laboratory Result Diagrams: 03/05/19 10:28 03/05/19 10:28 Lab Statement: Any lab studies that have been ordered have been reviewed, and results considered in the medical decision making process. - CT Brain CT CT Interpretation Completed By: Radiologist Summary of CT Findings: Brain CT IMPRESSION: DIFFUSELY DECREASED CALIBER OF THE INTRACRANIAL ARTERIAL CIRCULATION. THE DIFFERENTIAL INCLUDES NEUROPATHIC REVERSIBLE CEREBRAL VASOCONSTRICTION SYNDROME OR DRUG-INDUCED DIFFUSE CEREBRAL VASOCONSTRICTION. Reviewed by ED physician. Head CTA CT Interpretation Completed By: Radiologist Summary of CT Findings: Head CTA IMPRESSION: DIFFUSELY DECREASED CALIBER OF THE INTRACRANIAL ARTERIAL CIRCULATION. THE DIFFERENTIAL INCLUDES NEUROPATHIC REVERSIBLE CEREBRAL VASOCONSTRICTION SYNDROME OR DRUG-INDUCED DIFFUSE CEREBRAL VASOCONSTRICTION. Reviewed by ED physician. Headache Course/Dx - Course Course Of Treatment: Patient is a 39 y/o F presenting to the ED for a chief complaint of headache. Patient is present with her mother. Patient reports neck pain, more on the left than right, decreased ROM of the neck, neck stiffness, a rash on the back of the neck, blurry vision, photophobia, cough, urinary frequency, and bilateral ear pain. Patient describes the headache and bilateral ear pain as pressure which worsens when lying down. Patient denies any fever, chills, erythema of eyes, nasal drainage, sore throat, CP, SOB, abdominal pain, N/V, dysuria, hematuria, edema, or dizziness. Patient sees Dr. Talia Lee and had a BP of 172/120 during her last visit. On 03/02/19, patient was seen at [facility] for similar symptoms and given a "headache cocktail" with subsequent tremors after being given the medications. Patient has a PMHx of anxiety, depression, and ocular headaches that occasionally coincide with menstrual periods. Patient also has a FMHx of HTN. Patient is currently taking oral contraceptives and doxycycline for a bilateral ear infection and sinusitis. On exam, no sinus tenderness, bilateral TM erythema without bulging. At 12:10, I spoke with Dr. Johann Briceno who recommended to proceed with lumbar puncture. In the ED course, patient was given magnesium sulfate 2 gm IVPB, diazepam 2.5 mg IV, diphenhydramine 25 mg IV, iohexol 60 ml IV, metoclopramide 5 mg IV, metoprolol 2.5 mg IV, and metoprolol 5 mg IV. Laboratory abnormal findings: WBC 14.0, plt count 481, MPV 6.3, absolute neuts 9.6, urine specific gravity 1.002, urine blood 1+, urine RBC present. Brain CT IMPRESSION: DIFFUSELY DECREASED CALIBER OF THE INTRACRANIAL ARTERIAL CIRCULATION. THE DIFFERENTIAL INCLUDES NEUROPATHIC REVERSIBLE CEREBRAL VASOCONSTRICTION SYNDROME OR DRUG- INDUCED DIFFUSE CEREBRAL VASOCONSTRICTION. Head CTA IMPRESSION: DIFFUSELY DECREASED CALIBER OF THE INTRACRANIAL ARTERIAL CIRCULATION. THE DIFFERENTIAL INCLUDES NEUROPATHIC REVERSIBLE CEREBRAL VASOCONSTRICTION SYNDROME OR DRUG- INDUCED DIFFUSE CEREBRAL VASOCONSTRICTION. Lumbar puncture procedure: opening pressure of 19 cm of water. Fluid was clear. Tube 2 filled shelter and the flow spontaneously stopped. Repositioning of the spinal needle resumed the flow and with a small amount of blood from traumatic insertion. No signs of meningitis, no findings of venous sinus thrombus. At 14:41, Dr. Abbey Pratt agrees to admit the patient with a diagnosis of hypertensive emergency and intractable headache. Patient will be admitted to [facility] with a diagnosis of hypertensive emergency and intractable headache. - Diagnoses Provider Diagnoses: Intractable headache, Hypertensive emergency Is Visit Related: No - Physician Notifications Discussed Care Of Patient With: Johann Briceno - At 12:10, I spoke with Dr. Johann Briceno who recommended to proceed with lumbar puncture. At 14:41, Dr. Abbey Pratt agrees to admit the patient with a diagnosis of hypertensive emergency and intractable headache. Time Discussed With Above Provider: 12:10 Instructed by Provider To: Admit As Inpatient - Critical Care Time Critical Care Time: 30-74 min - 60 min Discharge ED - Sign-Out/Discharge Documenting (check all that apply): Patient Departure - Admit - Discharge Plan Condition: Stable Disposition: ADMITTED TO [facility] Referrals: Talia Lee MD [Primary Care Provider] - - Attestation Statements Document Initiated by Scribe: Yes Documenting Scribe: Iman Marc Provider For Whom Scribe is Documenting (Include Credential): Colby Kahn MD Scribe Attestation: I, Iman Marc, scribed for Colby Kahn MD on 03/05/19 at 1447. Status of Scribe Document: Ready
[2019-03-05] MEDS ORDERED: Metoclopramide IV* 5 MG/ML 2 ML VIAL IV SLOW PU ONE (10:20)
[2019-03-05] MEDS ORDERED: diPHENhydraMINE IV* 50 MG/ML 1 ml VIAL (BENADRYL) IV ONE (10:20)
[2019-03-05] MEDS ORDERED: Metoprolol Tartrate IV* 1 MG/ML 5 ML VIAL IV ONE ×2 (10:20→12:19)
[2019-03-05 10:33] LABS: Urine Appearance Clear; Urine Bacteria Absent (Absent); Urine Bilirubin Negative (Negative); Urine Blood 1+ (Negative); Urine Color Straw; Urine Glucose Negative (Negative); Urine Ketones Negative (Negative); Urine Nitrite Negative (Negative); Urine Protein Negative (Negative); Urine Red Blood Cell Trace(0-2/hpf) (Absent); Urine Specific Gravity 1.002 (1.010-1.030); Urine Squamous Epithelial Cell Present (Absent); Urine Urobilinogen Negative (Negative); Urine White Blood Cell Absent (Absent)
[2019-03-05 10:45] LABS: ABS Basophils 0.1 10^3/ul (0-0.2); ABS Lymphocytes 3.5 10^3/ul (1.0-4.8); ABS Monocytes 0.7 10^3/ul (0-0.8); ABS Neutrophils 9.6 10^3/ul (1.5-7.7); Eosinophil % 0.1 %; Hematocrit 41 % (35-47); Hemoglobin 13.8 g/dL (12.0-16.0); Lymphocyte % 25.2 %; Mean Corpuscular HGB Conc 34 g/dL (31-36); Mean Corpuscular Hemoglobin 31 pg (27-31); Mean Corpuscular Volume 91 fL (80-97); Mean Platelet Volume 6.3 fL (7.4-10.4); Platelet Count 481 10^3/uL (150-450); Red Blood Count 4.51 10^6 /uL (3.70-4.87); Red Cell Distribution Width 13 % (10-15)
[2019-03-05 10:55] LABS: Albumin 4.8 g/dL (3.2-5.2); Albumin/Globulin Ratio 1.7 (1-3); BUN/Creatinine Ratio 12.1 (8-20); Calcium 9.9 mg/dL (8.6-10.3); EGFR African American 119.4 (>60); EGFR Non-African American 98.7 (>60); Globulin 2.8 g/dL (2-4); Potassium 3.7 mmol/L (3.5-5.0); Total Bilirubin 0.3 mg/dL (0.2-1.0); Total Protein 7.6 g/dL (6.4-8.9)
[2019-03-05 10:57] LABS: Activated Partial Thrombo Time 31.7 seconds (26.0-38.0); INR 1.03 (0.82-1.09); Troponin I 0.01 ng/mL (<0.04)
[2019-03-05] MEDS ORDERED: Iohexol 350* (CONTRAST) 500 ML MDV IV ONE ×2 (11:01→23:20)
[2019-03-05] MEDS ORDERED: Magnesium Sulfate 2 GM IV* 2 GM/50 ML BAG IVPB ONE (12:19)
[2019-03-05] MEDS ORDERED: diazePAM INJ* 5 MG/ML 2ML SYRINGE IV ONE (12:19)
[2019-03-05 13:40] LABS: Body Fluid Source Cerebral Spinal
[2019-03-05 13:56] LABS: CSF Glucose 70 mg/dL (40-70)
[2019-03-05] MEDS ORDERED: Dexamethasone IV* 4 MG/ML 1 ML (4 MG) IV SLOW PU ONE (14:47)
[2019-03-05] MEDS ORDERED: Ketorolac INJ* 30 MG/ML 1 ML VIAL IV PUSH ONE (14:47)
[2019-03-05 15:04] LABS: Body Fluid Mono 35 %
[2019-03-05 15:05] LABS: Body Fluid Source Cerebral Spinal
[2019-03-05 15:51] LABS: Body Fluid Mono 10 %
[2019-03-05] MEDS ORDERED: Ondansetron INJ* 2 MG/ML VIAL IV PRN (17:15)
[2019-03-05] MEDS ORDERED: HYDROcodone/ACETAMIN 5-325 MG* 1 TAB PO PRN (17:15)
[2019-03-05] MEDS ORDERED: clonazePAM TAB(*) 0.5 MG PO PRN (17:15)
[2019-03-05] MEDS ORDERED: Enoxaparin(*) 40 MG/0.4 ML SYR SUBCUT SCH (18:00)
--- NOTE | 2019-03-05 19:21 | CONS ---
CC: Talia Lee MD * CONSULTATION REPORT: DATE OF CONSULT: 03/05/19 LOCATION: Current location is ED, bed 17. PRIMARY CARE PROVIDER: Talia Lee MD. REASON FOR CONSULTATION: Headache. HISTORY OF PRESENT ILLNESS: Ms. Estevez is a very nice 39-year-old female who has a history of some anxiety, for which she takes Paxil and she takes amitriptyline as well. She has no other significant past medical history. She presented to her outside physician almost a week ago. At that time, she had had 1-day history of some headache, which she described as frontal. She also noted pressure in her face and sinus as well as pressure in her jaw. She noted pressure in her ears as well. At that time, she was put on antibiotic for presumed infection. Over the next several days, she continued to have significant symptoms with subjective fevers and pain in her head; at time severe in nature. She started to develop more neck pain, especially when turning her head or flexing her head. She does note a history of occasional migraine headaches that started when she got years ago; at that time, she would have ocular migraines with some visual scotoma in the left visual field and these have persisted. She has had them occasionally. They typically were associated with heavy periods, although she is now on control medication and has more control over her periods and her headaches have been less, but in the last few days her headaches have increased. She has had several headaches in a day, which is unusual for her. Headaches are typical, associated with visual scotoma, scintillating in nature and then a global headache. The patient came to the ER on Tuesday. At that time , she was evaluated and felt most likely to have sinus infection and ear infection, currently on doxycycline with no improvement. She was not having the worst headache of her life per the ER report, but did have some neck pain. She admitted to some nausea and vomiting as well. White count at that time was normal. CRP was slightly elevated. She was given a migraine cocktail with some improvement, although she noted some leg jitteriness. She was given some steroids and Sudafed was added, although she states that she has been taking Sudafed for some time and will take it on a regular basis. She was also given some pain medication. On Tuesday, she continued to have worsening pain, worsening symptoms, not improving. She called Dr. Lee. Dr. Lee subsequently called me yesterday on Tuesday, and we discussed the case, and I recommended that the patient go to the ER for a lumbar puncture and a CT angiogram of the head and neck. Given the fact that she was on control, I was worried about venous sinus thrombosis versus the possibility of meningitis. She did not come to the hospital last night, but subsequently came to the hospital this morning. In the ER, she was noted to have significantly elevated blood pressures. She states that the last time she took pseudoephedrine was yesterday. Blood pressure in the ER at one point was 213/ 141. Lumbar puncture was done. She was also given magnesium sulfate 2 g IV, some diazepam, diphenhydramine, metoclopramide, and metoprolol 2.5 mg IV and subsequently 5 mg IV with some improvement of her blood pressure. Lumbar puncture showed an opening pressure of 19 and studies were sent. White count was 2, protein and glucose at the time of this dictation were pending. She had a CTA of the head and neck, which showed diffusely decreased caliber of the intracranial arterial circulation. Differential includes neuropathic reversible cerebral vasoconstriction syndrome or drug-induced diffuse cerebral vasoconstriction. MRI of the brain is pending. Since being in the hospital, she notes continued pain, severe in nature at times. She described it as a pressure in her head, continues to have ear pain, some nausea; no vomiting and pain with flexion-extension of her neck. PAST MEDICAL HISTORY: Her past medical history is noted. 1. Heavy periods. 2. Anxiety. 3. Migraine headaches. PAST SURGICAL HISTORY: Includes gallbladder surgery 3 months after her delivery. MEDICATIONS: Her current medications at home include: 1. Prednisone tab that she received in the ER. 2. Clonazepam as necessary. 3. Paroxetine 30 mg daily. 4. Orsythia 28 one tab daily. 5. Hydrocodone 1 tab p.o. q.8 hours. 6. Doxycycline 100 mg p.o. b.i.d. 7. Amitriptyline at bedtime. ALLERGIES: She has no known drug allergies. FAMILY HISTORY: Noncontributory. 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 She drinks rarely, socially. No tobacco use. No illicit substance use. Her mother is at the bedside. REVIEW OF SYSTEMS: Her review of systems in 14-organ systems is as noted above ; otherwise, negative. PHYSICAL EXAMINATION: Vital Signs: Blood pressures 191/135 to 185/132 to 180/ 118 to 143/116 to 155/125, pulse rate in the 90s, O2 sats in the 96% to 98% on room air. She is breathing comfortably at this time. The patient is lying in bed in a dark room. She is pleasant, but in some discomfort. Her mother is at the bedside. She is well nourished, well developed. HEENT: She is normocephalic, atraumatic. Sclerae are anicteric. Mucous membranes are slightly dry. Oropharynx is clear. Nares are patent. Neck: She is guarding her neck. She has some pain in the head with flexion and extension. No carotid bruits. Chest: Clear to auscultation bilaterally. Cardiovascular: Regular rate and rhythm without murmurs. Abdomen: Nontender, nondistended. Extremities: No clubbing, cyanosis, or edema is appreciated. Her skin is warm and dry. On neurologic examination, she is awake, alert, oriented x3. Her speech is fluent. There is no dysarthria. Repetition is intact. Recall of recent and remote events is intact. Vocabulary is intact. Her mood is dysthymic. Affect and mood congruent. Cranial Nerves: Pupils are equal, round , and reactive to light and accommodation. Extraocular muscles are intact. There is no nystagmus. No diplopia. Visual shaw are full. Face is symmetric. Facial sensation is intact. Hearing is intact bilaterally. Tongue is midline. Palate raises symmetrically. Her tympanic membranes are nonerythematous and clear bilaterally. She had no papilledema bilaterally on funduscopic examination. She spontaneously moves all extremities antigravity with good tone and bulk, 5/5 throughout with no weakness. Sensation is intact to light touch throughout. There are no focal deficits. DTRs are 3+ and symmetric at the biceps, triceps, brachioradialis, 3+ at the patella, 2+ at the ankles, she has 1 to 2 beats of nystagmus at the ankle bilaterally. Babinski's are upgoing. [id number] and rapid alternating movements are intact. Heel- to-hollins is intact. There are no tremors and no past-pointing. Gait was not tested at this time. DIAGNOSTIC STUDIES/LAB DATA: Lab work includes a white count of 14, platelet count of 41, absolute neutrophil count of 9.6. INR of 1.03, PTT of 31.7. Complete metabolic profile was normal. Lactic acid of 1.5 to 1.7. Urine showed specific gravity 1.002, 1+ blood, squamous epithelial cells present; otherwise, negative. Spinal fluid white count of 2, RBCs are 187, clear, colorless, total protein of 48, glucose of 70. Imaging: CT angiogram is noted above. Brain CT showed no acute intracranial abnormality. No evidence of hemorrhage. No mass effect or shift. The sinuses appear clear. Orbits are unremarkable. Intracranial circulation showed diffuse decreased caliber of the intracranial arterial circulation without focal stenosis. There is no aneurysm, vascular malformation, occlusion or stenosis of the visualized intracranial circulation. The anterior communicating artery complex is clear. The posterior communicating arteries are diminutive, but present. I did review the films with the radiologist. ASSESSMENT AND PLAN: Ms. Estevez is a 39-year-old female with a history of anxiety; on Paxil, history of migraine headaches dating back years with some ocular component, a history of heavy periods; now on control pills who presents to the hospital with a headache that has been worsening over the last week, some subjective fevers, neck pain, stiffness, ear pressure, sinus pressure , who came to the ER on Tuesday and received a migraine cocktail as well as some steroids and pain medication, was discharged home, and came back to the ER today. Per my recommendation to Dr. Lee and with worsening symptoms, lumbar puncture does not show any evidence of infection, normal opening pressure. CT angiogram of the head and neck are consistent with reversible cerebral vasoconstriction syndrome. There is no evidence of a subarachnoid hemorrhage. There is no evidence of thrombosis. 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 Other considerations would be vasculitis. I have sent an ANCA, C3, and C4, although my suspicion is low and would not give her steroids at this point. I see no evidence for cervical artery dissection. No evidence of posterior reversible encephalopathy syndrome. No seizures. No aneurysms. No metabolic abnormalities that might explain it. At this point, the plan is to get an MRI of the brain and look for any white matter changes that could suggest vasculitis, although again my suspicion is low. We will plan to treat her conservatively by bringing her blood pressure down slowly to allow her brain time to compensate. We will try to decrease her blood pressure, but allow for some permissive hypertension with treating for systolics greater than 180 or treating low blood pressure with intravenous fluids for systolic less than 90. We can use labetalol or calcium channel vazquez to help with the pressure, although precipitous drops in her blood pressure could result in hypoperfusion and strokes and we need to lower it slowly. We can treat her pain as necessary with pain medications such as Tylenol No. 3 or hydromorphone. Again, we will hold on any steroid therapy at this time as my suspicious for primary angiitis of the central nervous system is low. Plan will be to admit her. I think she should be monitored closely in the ICU, follow up the MRI, and watch her closely. I will continue to follow her and make further recommendations as necessary. Thanks for the opportunity to participate in the care of this very interesting patient. [id number]/[facility] #: [id number] MAURIZIO
[2019-03-05] MEDS ORDERED: Gadoteridol* (CONTRAST) 279.3 MG/ML 10 ML IV ONE (20:05)
[2019-03-05] MEDS: DOXYcycline CAP(*) 100 MG PO SCH (21:33)
--- NOTE | 2019-03-05 21:33 | HP ---
ADMISSION HISTORY AND PHYSICAL: DATE OF ADMISSION: 03/05/19 PRIMARY CARE PROVIDER: Dr. Lee. HEALTHCARE PROXY: Her mother. CODE STATUS: Full. SOURCE OF INFORMATION: History obtained from interview with the patient, discussion with Dr. Briceno. RELIABILITY: Good. CHIEF COMPLAINT: Headache. HISTORY OF PRESENT ILLNESS: This is a 39-year-old female with past medical history of SHANTELLE, migraines, and anxiety who had been in her usual state of health until approximately 1 week prior to presentation. First she started to develop frontal headaches associated with sinus pressure in ear, pressure associated with left ear discharge. She was seen by her PCP, started on amoxicillin approximately 1 week prior to presentation, but her symptoms continued to worse with subjective fevers and then development of a headache 6 days prior to presentation. She felt neck pain that felt worse with moving and increasing headache throughout. The week she came to the emergency room on Tuesday, 3 days prior to presentation, where she was thought to have an ear infection or a migraine, was discharged on doxycycline as well as prednisone. However, she developed nausea and vomiting at home and her symptoms continued to worsen. She spoke with her primary care physician and discussed with Neurology over the weekend, who referred her to the emergency room; however, she did not come to the emergency room until she was seen by her PCP again today and was noted with increased hypertension. Of note, also last week, she received 1 dose of fluconazole as well as was taking pseudoephedrine 2 tabs approximately 4 to 5 times per day. On presentation to the emergency room, she had blood pressure of 213/141. She was seen in the emergency room by Neurology who performed a lumbar puncture before the hospitalist service was consulted for admission. When seen by this author, the patient's headache was persistent; however, much improved. PAST MEDICAL HISTORY: Includes: 1. Anxiety, on Paxil since age 14. 2. Migraines, which are occasional associated with visual auras. 3. Obstructive sleep apnea, which the patient describes as severe, on CPAP. Of note, she has not been using her CPAP over the last 2 weeks in the setting of sinus congestion. PAST SURGICAL HISTORY: Cholecystectomy. MEDICATIONS: Home medications include: 1. Amitriptyline 12.5 to 25 mg at bedtime. 2. Paxil 30 mg daily. 3. Oral contraceptive tab daily. 4. Clonazepam 0.5 mg in the evening as needed. ALLERGIES: To MILK. SOCIAL HISTORY: Works at [employer]. No tobacco or illicits. Rare alcohol. FAMILY HISTORY: Mother with hypertension and dermatomyositis. Father with CVA and hypertension. REVIEW OF SYSTEMS: Left ear discharge. Worsening headache, worse with lying down. Vomiting, nausea, blurry vision, photophobia, subjective fever, diaphoresis, left neck pain, decreased p.o. intake, notable for regular menses every 3 months. PHYSICAL EXAMINATION GENERAL: Sitting up in bed, interactive, pleasant, in no apparent distress. VITAL SIGNS: In the emergency room when seen by this author, 145/110, heart rate is 80, respiratory rate is 16, she is 96% on room air, T-max 97.8. HEENT: Oropharynx is clear. She has moist mucous membranes. Sclerae are anicteric. NECK: She has no cervical or supraclavicular lymphadenopathy. LUNGS: Clear to auscultation. HEART: She has regular rate and rhythm. No murmurs, rubs, or gallops. ABDOMEN: Soft, nontender, nondistended. EXTREMITIES: Warm and well perfused without clubbing, cyanosis, or edema. She has less than 2-second cap refill. NEURO: She is alert and oriented x3. Her cranial nerves II through XII are intact. She has no drift. Strength intact throughout. Sensation intact. PSYCHIATRIC: She has no apparent anxiety, agitation, or depression. SKIN: Good skin turgor. DIAGNOSTIC STUDIES/LAB DATA: Labs reviewed notable for white blood cell count of 14,000, platelets 481, hemoglobin 13.8. Lactic acid 1.5. Troponin 0.01. Urine is bland. LP notable for total protein 48, glucose 70, serum glucose is 85, 1 white blood cell, 187 red blood cells in tube 4 versus [address] diffusely decreased caliber of the intracranial arterial circulation without focal stenosis. There are no aneurysms, vascular malformation, occlusion, or stenosis of the visualized intracranial circulation. The anterior communicating artery is completely clear. The posterior communicating arteries are diminutive if present. ASSESSMENT AND PLAN: This is a 39-year-old female with past medical history as outlined above including anxiety, SHANTELLE, migraines presenting with a week of sinus congestion with concern for infection with worsening headache. ____Head_ _ CTA notable for diffuse cerebral vasoconstriction. 1. Headache. Migraine, tension, headache are on the differential. However I suspect diffuse cerebral vasoconstriction in the setting of medication effect, most likely pseudoephedrine over the last week. Additionally, with holding her CPAP for her severe obstructive sleep apnea may have contributed to worsening headache syndrome. Discussed at length with Dr. Briceno from Neurology who managed her blood pressure conservatively to not to decrease her blood pressure too rapidly. At this point, blood pressure is better controlled. We will not initiate any antihypertensives. If blood pressure remains with systolic ___ greater than___ 180 or diastolic greater than 110, we would initiate labetalol, low dose likely 2.5 to 5 mg depending on needed effect and/or start drip very slowly. If the patient's systolic blood pressure drops below 100 or diastolic less than 60, we would bolus to maintain elevated blood pressures with a concern to prevent cerebral ischemia. Neuro checks q.4 hours. Pain medications with oxycodone as indicated above. 2. Anxiety. Continue with Paxil as well as clonazepam p.r.n. 3. Obstructive sleep apnea. Onset CPAP. 4. DVT prophylaxis. [place]. [id number]/[facility] #: [id number] MAURIZIO
[2019-03-05] MEDS ORDERED: Aspirin TAB* 325 MG ONE (22:37)
[2019-03-05] MEDS ORDERED: Labetalol IV* 5 MG/ML 20 ML VIAL IV PUSH PRN (22:50)
[2019-03-05] MEDS: Aspirin EC TAB* 325 MG PO ONE (22:50)
[2019-03-06] MEDS ORDERED: NS 0.9% 1000 ML** 1,000 ML IV ONE (03:15)
--- NOTE | 2019-03-06 03:20 | PN ---
Hospitalist Progress Note Date of Service: 03/06/19 Discussed case multiple times with Dr. Briceno throughout the night. Initially started labetalol PRN pushes but on second discussion (which happened after Dr. Briceno spoke with [facility]) we agreed on starting patinet on nicardipine drip for better titration of BP with goals being [id number] DBP 85- 95. However patient was noted to have low BP so started giving bolus now to improve her BP.
[2019-03-06 05:48] LABS: ABS Basophils 0.1 10^3/ul (0-0.2); ABS Lymphocytes 2.4 10^3/ul (1.0-4.8); ABS Monocytes 0.6 10^3/ul (0-0.8); ABS Neutrophils 6.8 10^3/ul (1.5-7.7); Eosinophil % 0.1 %; Hematocrit 34 % (35-47); Hemoglobin 11.5 g/dL (12.0-16.0); Lymphocyte % 24.1 %; Mean Corpuscular HGB Conc 34 g/dL (31-36); Mean Corpuscular Hemoglobin 31 pg (27-31); Mean Corpuscular Volume 91 fL (80-97); Mean Platelet Volume 6.2 fL (7.4-10.4); Nucleated Red Blood Cells % 0.1; Platelet Count 418 10^3/uL (150-450); Red Blood Count 3.77 10^6 /uL (3.70-4.87); Red Cell Distribution Width 13 % (10-15); White Blood Count 9.8 10^3/uL (3.5-10.8)
[2019-03-06 06:08] LABS: BUN/Creatinine Ratio 12.9 (8-20); Blood Urea Nitrogen 8 mg/dL (6-24); CO2 Carbon Dioxide 23 mmol/L (22-32); Calcium 8.2 mg/dL (8.6-10.3); Chloride 106 mmol/L (101-111); EGFR African American 128.4 (>60); EGFR Non-African American 106.1 (>60); Glucose 102 mg/dL (70-100); Sodium 137 mmol/L (135-145)
[2019-03-06 06:15] LABS: Anion Gap 8 mmol/L (2-11)
[2019-03-06] MEDS: niCARdipine 0.1MG/ML IVPREMIX* 20 MG/200 ML BAG IV SCH ×2 (06:45→12:08)
[2019-03-06] MEDS: DOXYcycline CAP(*) 100 MG PO SCH (07:51)
[2019-03-06] MEDS ORDERED: PARoxetine HCL TAB* 10 MG PO SCH (09:00)
--- NOTE | 2019-03-06 09:32 | PN ---
Date of Service: 03/06/19 - HD 2 Critical Care Services: 39 yo F with PMH notable for anxiety and depression, occular headaches. She has had 4 days of headache, neck pain, neck stiffness, rash, blurry vision, photophobia, cough, urinary frequency and ear pain. Headache, ear pain, and feeling of intracranial pressure worsen when lying down or trying to ambulate. She was seen in the ED and her PCP office for these complaints and was trialed on Pseudophed and doxycycline. Her symptoms familed to improve and she presented to the ED on March 05. On evaulation in the ED she was noted to be hypertensive to 213/141 (no personal history of HTN). Remaining vital signs stable. Physical exam was unremarkable. Neuro exam within normal limits. An LP was done. Labs notable for CBC 14. CT and CTA brain shows diffusely decreased caliber of the intracranial arterial circulation (anterior and posterior). Neurology consulted. She was admitted for hypertensive emergency and intractable headache. Intially bolused with Labetalol, however transitioned to Nicardipine gtt overnight to maintain BP within tight goals of SBP 150-160 and DBP 85-95. Required IVF bolus for hypotension. MR report returned with bilateral carotid artery dissection. No infarct. UR contacted overnight for possible transfer however they felt that unless the patient stroked, they wouldn't be doing anything differently so did not accept the transfer. 03/06: Pt remains symptomatic, no improvement with lowered BP. On nicardipine gtt. Complaining of shortness of breath when ambulating to bathroom and nursing notes HR bumps to 140s when gets up out of bed. Pt reported to Neurology today that she had an episode of double vision which spontaneously resolved; concerning for a TIA. Neurology (Dr. Briceno) spoke with [facility] team and they have accepted the patient. Arrangements being made for transfer. Vital Signs: Temp Pulse Resp BP SpO2 FiO2 99 F 109 15 141/92 97 03/06/19 07:25 03/06/19 09:05 03/06/19 09:05 03/06/19 09:05 03/06/19 09:05 Physical Exam: Gen: alert, resting comfortably HEENT: intact Lungs: nonlabored Cardiac: tachycardic, regular Abdomen: nondistended Extremities: dry, no edema Neuro: alert and oriented Fluid Balance (Past 24 Hours): I= O= Net Intake & Output 03/04/19 03/05/19 03/06/19 03/07/19 06:59 06:59 06:59 06:59 Intake Total 3150 0 Output Total 0 Balance 3150 0 Weight 155 lb 6.814 oz Intake: IV Fluids 1000 NS (0.9%) 950 Oral 2150 0 Output: Urine 0 Emesis 0 Other: Estimated Void Medium Medium Date of Last Bowel 03/04/19 Movement # Voids 1 1 Labs: Laboratory Results - last 24 hr 03/05/19 03/05/19 03/05/19 10:00 10:28 10:28 WBC 14.0 H RBC 4.51 Hgb 13.8 Hct 41 MCV 91 MCH 31 MCHC 34 RDW 13 Plt Count 481 H D MPV 6.3 L Neut % (Auto) 68.7 Lymph % (Auto) 25.2 [place] % (Auto) 5.2 Eos % (Auto) 0.1 Baso % (Auto) 0.8 Absolute Neuts (auto) 9.6 H Absolute Lymphs (auto) 3.5 Absolute Monos (auto) 0.7 Absolute Eos (auto) 0.0 Absolute Basos (auto) 0.1 Absolute Nucleated RBC 0.0 Nucleated RBC % 0.0 INR (Anticoag Therapy) 1.03 APTT 31.7 Sodium Potassium Chloride Carbon Dioxide Anion Gap BUN Creatinine Est GFR ( Amer) Est GFR (Non-Af Amer) BUN/Creatinine Ratio Glucose Lactic Acid Calcium Total Bilirubin AST ALT Alkaline Phosphatase Troponin I Total Protein Albumin Globulin Albumin/Globulin Ratio Urine Color Straw Urine Appearance Clear Urine pH 8.0 Ur Specific [place] 1.002 L Urine Protein Negative Urine Ketones Negative Urine Blood 1+ A Urine Nitrate Negative Urine Bilirubin Negative Urine Urobilinogen Negative Ur Leukocyte Esterase Negative Urine WBC (Auto) Absent Urine RBC (Auto) Trace(0-2/hpf) Ur Squamous Epith Cells Present A Urine Bacteria Absent Urine Glucose Negative Fluid Source Fluid Volume Fluid Color Fluid Appearance Fluid WBC Fluid RBC Fluid Tot Cell Count Fluid Neutrophils Fluid Lymphocytes Fluid Monocytes Fluid Comment CSF Cell Count Tube # CSF Glucose CSF Total Protein 03/05/19 03/05/19 03/05/19 10:28 10:28 13:35 WBC RBC Hgb Hct MCV MCH MCHC RDW Plt Count MPV Neut % (Auto) Lymph % (Auto) [place] % (Auto) Eos % (Auto) Baso % (Auto) Absolute Neuts (auto) Absolute Lymphs (auto) Absolute Monos (auto) Absolute Eos (auto) Absolute Basos (auto) Absolute Nucleated RBC Nucleated RBC % INR (Anticoag Therapy) APTT Sodium 138 Potassium 3.7 Chloride 102 Carbon Dioxide 27 Anion Gap 9 BUN 8 Creatinine 0.66 Est GFR ( Amer) 119.4 Est GFR (Non-Af Amer) 98.7 BUN/Creatinine Ratio 12.1 Glucose 85 Lactic Acid 1.5 Calcium 9.9 Total Bilirubin 0.30 AST 20 ALT 30 Alkaline Phosphatase 59 Troponin I 0.01 Total Protein 7.6 Albumin 4.8 Globulin 2.8 Albumin/Globulin Ratio 1.7 Urine Color Urine Appearance Urine pH Ur Specific [place] Urine Protein Urine Ketones Urine Blood Urine Nitrate Urine Bilirubin Urine Urobilinogen Ur Leukocyte Esterase Urine WBC (Auto) Urine RBC (Auto) Ur Squamous Epith Cells Urine Bacteria Urine Glucose Fluid Source Fluid Volume Fluid Color Fluid Appearance Fluid WBC Fluid RBC Fluid Tot Cell Count Fluid Neutrophils Fluid Lymphocytes Fluid Monocytes Fluid Comment CSF Cell Count Tube # CSF Glucose 70 CSF Total Protein 48 H 03/05/19 03/05/19 03/05/19 13:35 13:35 14:17 WBC RBC Hgb Hct MCV MCH MCHC RDW Plt Count MPV Neut % (Auto) Lymph % (Auto) [place] % (Auto) Eos % (Auto) Baso % (Auto) Absolute Neuts (auto) Absolute Lymphs (auto) Absolute Monos (auto) Absolute Eos (auto) Absolute Basos (auto) Absolute Nucleated RBC Nucleated RBC % INR (Anticoag Therapy) APTT Sodium Potassium Chloride Carbon Dioxide Anion Gap BUN Creatinine Est GFR ( Amer) Est GFR (Non-Af Amer) BUN/Creatinine Ratio Glucose Lactic Acid 1.7 Calcium Total Bilirubin AST ALT Alkaline Phosphatase Troponin I Total Protein Albumin Globulin Albumin/Globulin Ratio Urine Color Urine Appearance Urine pH Ur Specific [place] Urine Protein Urine Ketones Urine Blood Urine Nitrate Urine Bilirubin Urine Urobilinogen Ur Leukocyte Esterase Urine WBC (Auto) Urine RBC (Auto) Ur Squamous Epith Cells Urine Bacteria Urine Glucose Fluid Source Cerebral spinal Cerebral spinal Fluid Volume 1.5 1.5 Fluid Color Colorless Colorless Fluid Appearance Clear Clear Fluid WBC 2 1 Fluid RBC 187 5 Fluid Tot Cell Count 20 10 Fluid Neutrophils Not Reportable Not Reportable Fluid Lymphocytes 65 90 Fluid Monocytes 35 10 Fluid Comment CSF Cell Count Tube # 4 1 CSF Glucose CSF Total Protein 03/06/19 03/06/19 03/06/19 05:30 05:30 07:06 WBC 9.8 RBC 3.77 Hgb 11.5 L Hct 34 L MCV 91 MCH 31 MCHC 34 RDW 13 Plt Count 418 MPV 6.2 L Neut % (Auto) 69.2 Lymph % (Auto) 24.1 [place] % (Auto) 5.7 Eos % (Auto) 0.1 Baso % (Auto) 0.9 Absolute Neuts (auto) 6.8 Absolute Lymphs (auto) 2.4 Absolute Monos (auto) 0.6 Absolute Eos (auto) 0.0 Absolute Basos (auto) 0.1 Absolute Nucleated RBC 0.0 Nucleated RBC % 0.1 INR (Anticoag Therapy) APTT Sodium 137 Potassium TNP TNP Chloride 106 Carbon Dioxide 23 Anion Gap 8 BUN 8 Creatinine 0.62 Est GFR ( Amer) 128.4 Est GFR (Non-Af Amer) 106.1 BUN/Creatinine Ratio 12.9 Glucose 102 H Lactic Acid Calcium 8.2 L Total Bilirubin AST ALT Alkaline Phosphatase Troponin I Total Protein Albumin Globulin Albumin/Globulin Ratio Urine Color Urine Appearance Urine pH Ur Specific [place] Urine Protein Urine Ketones Urine Blood Urine Nitrate Urine Bilirubin Urine Urobilinogen Ur Leukocyte Esterase Urine WBC (Auto) Urine RBC (Auto) Ur Squamous Epith Cells Urine Bacteria Urine Glucose Fluid Source Fluid Volume Fluid Color Fluid Appearance Fluid WBC Fluid RBC Fluid Tot Cell Count Fluid Neutrophils Fluid Lymphocytes Fluid Monocytes Fluid Comment CSF Cell Count Tube # CSF Glucose CSF Total Protein Studies: 03/05 CTA neck: mid distal LICA with severe luminal narrowing to approximately 70 % distally. mural thrombus/ dissection also involves the proximal left petrous interal carotid artery. Approximately 50% luminal narrowing of the distal [place] wtih mural thrombus/dissection. Moderate stenosis of the V4 segment of the left vertebral artery. Near effacement of left pyriform sinus. MR brain: micreased signal intesity surrounding bilateral extracarnial carotid arteries concerning for dissection. No restricted diffusion to suggest acute infarct. CTA head & CT brain: Diffusely decreased caliber of the intracranial arterial circulation. Posterior communicating arteries are dimmunitive if present Nutrition: general diet Impression: 39 yo F admitted on 03/05 with persistent headache and hypertensive emergency, now with posterior and anterior circulation vasoconstriction and bilateral carotid dissections. On Nicardipine for tight BP control and ASA. 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 -- HR 71-109 -- SBP 106-213 -- Telemetry -- Troponin negative on admission -- Nicardipine gtt -- ASA daily -- Add Metoprolol for impulse control and tachycardia Home meds: None Pulmonary: (1) Pulmonary edema -- RR 5-22 -- sats 94-99 on RA -- CXR: pulmonary edema Home meds: None Gastrointestinal: No acute issues -- LFTs within normal limits -- diet: general -- bowel regimen: none -- ulcer prophylaxis: not indicated at this time -- PRN Zofran Home meds: None Endocrine: No acute issues -- monitor BGs Home meds: Levonorgestrel-Ethin Estradiol, Prednisone Renal: No acute issues -- UOP: voiding -- Cr 0.62 from 0.66 -- Lytes Na 137 from 138 K 4.3 Ca 8.2, replace -- IVF: HL Home meds: None Infectious disease: (1) Possible sinus infection -- Tmax 99 -- WBC 9.8 from 14 -- Micro 11/4 CSF in progress MRSA negative UA negative -- ABX Doxycycline Home meds: Doxycycline Neurologic: (1) Bilateral internal carotid artery dissections, right 50% and left 70%; (2) 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 Avoiding hypertension so as not to exacerbate dissection. Avoiding hypotension so as to support cerebral perfusion. -- ASA for dissection. Home meds: Paroxetine, Clonazepam, Amitriptyline, Hydrocodone/acetaminophen Hematological: (1) Anemia -- Hgb 11.5 from 13.8, dilutional -- Plt 418 from 481 -- Coags INR 1.03 PTT 31.7 -- DVT prophylaxis: SQ Lovenox -- ASA daily Home meds: None Metabolic: No acute issues Home meds: None Other: No acute issues Home meds: None Deep vein thrombosis prophylaxis: SQ Lovenox Dietary: Not indicated at this time Condition: critical Prognosis: guarded Code status: full Disposition: continue ICU Care Family updated at bedside regarding interval events and plan of care Cumulative time spent in the care of this patient (excluding any procedure time) : at least 60 minutes. Patient care included clinical interview (with patient and/or family), bedside exam of the patient, review of labs, x-rays, and other ancillary data, coordination of (respiratory, nursing care, review of patient's records, discussion regarding patients management with involved consultants, primary physician, pharmacists, and other healthcare personnel (dietary, case management , physical/occupational therapy etc.) Critical Care Time: 60 min
[2019-03-06] MEDS ORDERED: Aspirin EC TAB* 325 MG PO SCH (10:30)
--- NOTE | 2019-03-06 10:59 | PN ---
Subjective Date of Service: 03/06/19 Length of Stay: 1 Days Interval History: The patient has been stable overnight. She has had some visual field disturbances, brief in nature, no other focal neurologic signs or symptoms. Events overnight reviewed. MRI showed evidence of bilateral carotid artery dissection, subsequently confirmed on CTA of the neck showing bilateral extracranial stenosis 70% on the left and 50% on the right with some extension intracranially on the left as well. The patient continues to have 2-3/10 frontal headaches, feel congested at times in her face and ears. Some mild neck pain as well. Overnight, blood pressures have been some what labile on Nicardipine drip. Received aspirin last night. I did speak with Dr. Tomas Higgins overnight at the [facility] who reviewed the films and felt she was stable at that point for close monitoring here with tight blood pressure parameters. Objective Active Medications: Hydrocodone Bitart/Acetaminophen ([place] 5-325 Tab*) 1 tab PO Q8H PRN PRN Reason: PAIN - SEVERE Aspirin (Aspirin 81 Mg Chew Tab*) 81 mg PO DAILY [facility] Clonazepam (Klonopin Tab(*)) 0.5 mg PO QPM PRN PRN Reason: anxiety Last Admin: 03/05/19 21:33 Dose: 0.5 mg Doxycycline Hyclate (Vibramycin Cap(*)) 100 mg PO BID [facility] Last Admin: 03/06/19 07:51 Dose: 100 mg Enoxaparin Sodium (Lovenox(*)) 40 mg SUBCUT Q24H KAUR Last Admin: 03/05/19 19:08 Dose: 40 mg Nicardipine/Sodium Chloride (Cardene 0.1mg/Ml Ivpremix*) 20 mg in 200 mls @ 0 mls/hr IV PER RATE [facility]; Protocol Last Admin: 03/06/19 06:45 Dose: 50 mls/hr Metoprolol Tartrate (Lopressor Iv*) 2.5 mg IV Q6H KAUR Ondansetron HCl (Zofran Inj*) 4 mg IV Q4H PRN PRN Reason: NAUSEA/VOMITING Paroxetine HCl (Paxil Tab*) 30 mg PO DAILY [facility] Last Admin: 03/06/19 07:51 Dose: 30 mg Vital Signs 03/05/19 03/05/19 03/05/19 11:00 11:02 12:00 Temperature Pulse Rate 71 74 75 Respiratory Rate Blood Pressure 171/115 (mmHg) O2 Sat by Pulse 98 98 98 Oximetry 03/05/19 03/05/19 03/05/19 12:17 12:33 12:44 Temperature Pulse Rate 81 96 77 Respiratory Rate Blood Pressure 171/127 187/125 (mmHg) O2 Sat by Pulse 99 99 99 Oximetry 03/05/19 03/05/19 03/05/19 12:51 13:00 13:01 Temperature Pulse Rate 76 76 82 Respiratory Rate Blood Pressure 185/124 185/126 (mmHg) O2 Sat by Pulse 98 97 95 Oximetry 03/05/19 03/05/19 03/05/19 13:11 13:21 13:31 Temperature Pulse Rate 90 94 91 Respiratory Rate Blood Pressure 191/135 185/132 180/118 (mmHg) O2 Sat by Pulse 95 96 96 Oximetry 03/05/19 03/05/19 03/05/19 13:41 13:51 14:00 Temperature Pulse Rate 90 93 91 Respiratory Rate Blood Pressure 143/116 155/125 (mmHg) O2 Sat by Pulse 95 98 96 Oximetry 03/05/19 03/05/19 03/05/19 14:01 14:11 14:22 Temperature Pulse Rate 97 87 84 Respiratory Rate Blood Pressure 180/127 177/107 164/113 (mmHg) O2 Sat by Pulse 96 96 95 Oximetry 03/05/19 03/05/19 03/05/19 14:31 14:41 14:51 Temperature Pulse Rate 85 88 85 Respiratory Rate Blood Pressure 165/104 138/116 164/117 (mmHg) O2 Sat by Pulse 96 95 94 Oximetry 03/05/19 03/05/19 03/05/19 15:03 15:11 15:21 Temperature Pulse Rate 94 87 81 Respiratory Rate Blood Pressure 159/116 161/115 (mmHg) O2 Sat by Pulse 94 95 94 Oximetry 03/05/19 03/05/19 03/05/19 15:31 15:41 16:00 Temperature Pulse Rate 79 80 86 Respiratory Rate Blood Pressure 168/110 145/110 (mmHg) O2 Sat by Pulse 96 96 97 Oximetry 03/05/19 03/05/19 03/05/19 16:17 16:47 17:00 Temperature Pulse Rate 87 89 96 Respiratory Rate Blood Pressure 159/111 151/118 (mmHg) O2 Sat by Pulse 96 97 97 Oximetry 03/05/19 03/05/19 03/05/19 17:17 17:47 17:58 Temperature 98.4 F Pulse Rate 92 89 84 Respiratory 17 Rate Blood Pressure 164/121 166/115 153/113 (mmHg) O2 Sat by Pulse 97 95 96 Oximetry 03/05/19 03/05/19 03/05/19 18:00 18:14 18:30 Temperature 97.8 F Pulse Rate 90 89 89 Respiratory 17 17 17 Rate Blood Pressure 166/115 155/121 (mmHg) O2 Sat by Pulse 96 95 95 Oximetry 03/05/19 03/05/19 03/05/19 19:00 20:00 20:13 Temperature 99.0 F Pulse Rate 88 Respiratory 18 18 16 Rate Blood Pressure 154/108 (mmHg) O2 Sat by Pulse 93 98 Oximetry 03/05/19 03/05/19 03/05/19 20:21 20:30 21:00 Temperature Pulse Rate 90 82 81 Respiratory 17 13 18 Rate Blood Pressure 165/114 158/113 145/106 (mmHg) O2 Sat by Pulse 98 97 98 Oximetry 03/05/19 03/05/19 03/05/19 21:31 22:00 22:30 Temperature Pulse Rate 82 88 89 Respiratory 22 15 15 Rate Blood Pressure 154/107 152/104 142/93 (mmHg) O2 Sat by Pulse 98 98 98 Oximetry 03/05/19 03/05/19 03/05/19 23:00 23:30 23:58 Temperature Pulse Rate 87 100 82 Respiratory 14 13 14 Rate Blood Pressure 149/111 143/114 167/113 (mmHg) O2 Sat by Pulse 95 94 98 Oximetry 03/06/19 03/06/19 03/06/19 00:00 00:15 00:30 Temperature 97.8 F Pulse Rate 80 80 79 Respiratory 16 16 13 Rate Blood Pressure 140/96 151/99 (mmHg) O2 Sat by Pulse 97 99 98 Oximetry 03/06/19 03/06/19 03/06/19 00:45 00:59 01:00 Temperature Pulse Rate 78 80 78 Respiratory 13 16 13 Rate Blood Pressure 138/96 139/96 (mmHg) O2 Sat by Pulse 98 96 98 Oximetry 03/06/19 03/06/19 03/06/19 01:15 01:16 01:30 Temperature 97.7 F Pulse Rate 81 74 Respiratory 16 13 Rate Blood Pressure 138/100 146/92 (mmHg) O2 Sat by Pulse 98 98 Oximetry 03/06/19 03/06/19 03/06/19 01:45 02:00 02:15 Temperature Pulse Rate 83 76 81 Respiratory 17 18 5 Rate Blood Pressure 139/92 135/88 127/85 (mmHg) O2 Sat by Pulse 97 97 97 Oximetry 03/06/19 03/06/19 03/06/19 02:30 02:45 03:00 Temperature Pulse Rate 80 92 82 Respiratory 17 14 20 Rate Blood Pressure 134/87 124/88 106/64 (mmHg) O2 Sat by Pulse 97 98 96 Oximetry 03/06/19 03/06/19 03/06/19 03:15 03:30 03:45 Temperature Pulse Rate 82 81 80 Respiratory 11 12 13 Rate Blood Pressure 154/103 137/106 134/90 (mmHg) O2 Sat by Pulse 97 99 98 Oximetry 03/06/19 03/06/19 03/06/19 04:00 04:15 04:30 Temperature Pulse Rate 80 80 77 Respiratory 11 18 13 Rate Blood Pressure 130/89 138/89 130/94 (mmHg) O2 Sat by Pulse 97 97 97 Oximetry 03/06/19 03/06/19 03/06/19 04:45 05:00 05:16 Temperature 97.8 F Pulse Rate 87 79 100 Respiratory 14 15 13 Rate Blood Pressure 153/110 147/95 143/85 (mmHg) O2 Sat by Pulse 96 97 97 Oximetry 03/06/19 03/06/19 03/06/19 05:30 05:46 06:00 Temperature Pulse Rate 83 90 Respiratory 14 13 14 Rate Blood Pressure 144/99 150/100 146/106 (mmHg) O2 Sat by Pulse 98 96 Oximetry 03/06/19 03/06/19 03/06/19 06:15 06:30 06:34 Temperature Pulse Rate 81 87 84 Respiratory 14 17 13 Rate Blood Pressure 143/104 170/115 170/115 (mmHg) O2 Sat by Pulse 97 98 98 Oximetry 03/06/19 03/06/19 03/06/19 06:38 06:45 07:00 Temperature Pulse Rate 81 80 96 Respiratory 16 13 13 Rate Blood Pressure 159/109 147/109 138/95 (mmHg) O2 Sat by Pulse 96 99 98 Oximetry 03/06/19 03/06/19 03/06/19 07:15 07:25 07:30 Temperature 99 F Pulse Rate 103 100 Respiratory 16 15 Rate Blood Pressure 129/87 137/91 (mmHg) O2 Sat by Pulse 96 97 Oximetry 03/06/19 03/06/19 03/06/19 07:45 08:00 08:15 Temperature Pulse Rate 101 105 98 Respiratory 16 18 14 Rate Blood Pressure 135/94 143/99 141/99 (mmHg) O2 Sat by Pulse 98 97 98 Oximetry 03/06/19 03/06/19 03/06/19 08:30 09:00 09:05 Temperature Pulse Rate 98 108 109 Respiratory 14 17 15 Rate Blood Pressure 142/101 141/92 (mmHg) O2 Sat by Pulse 96 95 97 Oximetry 03/06/19 03/06/19 03/06/19 09:15 09:30 09:45 Temperature Pulse Rate 103 104 107 Respiratory 16 15 15 Rate Blood Pressure 135/96 139/95 141/101 (mmHg) O2 Sat by Pulse 97 97 98 Oximetry 03/06/19 03/06/19 03/06/19 10:00 10:15 10:30 Temperature Pulse Rate 115 112 145 Respiratory 12 15 26 Rate Blood Pressure 141/99 158/118 (mmHg) O2 Sat by Pulse 98 97 98 Oximetry Intake and Output Last 24 Hours 03/04/19 03/05/19 03/06/19 03/07/19 06:59 06:59 06:59 06:59 Intake Total 3150 120 Output Total 0 Balance 3150 120 Weight 155 lb 6.814 oz Intake: IV Fluids 1000 NS (0.9%) 950 Oral 2150 120 Output: Urine 0 Emesis 0 Other: Estimated Void Medium Medium Date of Last Bowel 03/04/19 Movement # Voids 1 1 Oxygen Devices in Use Now: None Neurology Exam: General: Well nourished, well developed, tearful, worried HEENT: Normocephelic/atraumatic, sclera anicteric, mucous membranes moist Neck: Supple Chest: Clear to auscultation bilaterally Cardiovascular: Tachycardic without murmurs, rubs, gallops Abdomen: Soft, non-tender/non-distended Extremities: No clubbing, cyanosis, or edema Neurological Findings: Awake, alert, and oriented to person, place, and time. Speech: fluent without dysarthria, repetition intact Cranial Nerve: PERRL, EOM intact(brief episode of diplopia during my exam, resolved spontaneously), VFF, no nystagmus, face symmetric bilaterally, facial sensation intact, hearing intact to finger rub bilaterally, palate elevates symmetrically, tongue midline Motor: 5/5 throughout, proximal and distal extremities x4 tone/bulk normal Sensation: intact to LT/PP bilaterally upper and lower extremities Deep Tendon Reflex: 2+ BC/BR/TC. 2+ Patella, downgoing bilaterally Finger to nose, rapid alternating movements intact without tremor Result Diagrams: 03/06/19 05:30 03/06/19 08:47 Microbiology and Other Data: Microbiology 03/05/19 10:28 Aerobic Blood Culture - Preliminary Blood Venous No Growth Day 1 Anaerobic Blood Culture - Preliminary No Growth Day 1 03/05/19 10:00 Aerobic Blood Culture - Preliminary Blood Venous No Growth Day 1 Anaerobic Blood Culture - Preliminary No Growth Day 1 03/05/19 18:24 Nasal Screen MRSA (PCR) - Final Nasal Mrsa Not Detected 03/05/19 13:35 CSF Gram Stain (Tube 3) - Final Cerebral Spinal Fluid Assessment/Plan Ms. Estevez is a 39-year-old female with a history of anxiety; on Paxil, history of migraine headaches dating back years with some ocular component, a history of heavy periods; now on control pills who presents to the hospital with a headache that has been worsening over the last week, some subjective fevers, neck pain, stiffness, ear pressure, sinus pressure, who came to the ER on Tuesday and received a migraine cocktail as well as some steroids and pain medication, was discharged home, and came back to the ER today. Per my recommendation to Dr. Lee and with worsening symptoms, lumbar puncture does not show any evidence of infection, normal opening pressure. CT angiogram of the head and neck are consistent with reversible cerebral vasoconstriction syndrome. Subsequent MRI showed evidence of bilateral carotid artery dissection and CTA of the neck confirmed dissection bilaterally 70% on the left with some intracranial extension and 50% on the right. During my exam today, she did have what appears to be a brief episode of diplopia, resolved spontaneously. Of note, the patient had more RBCs in her tube #4 spinal fluid but I was in the room during the spinal tap and the ER doctor had to withdraw the needle and reinsert with some blood returned on tube 4. My suspicion for SAH remains low. With relatively normal CSF findings, my suspicion for vasculitis is low but a consideration. ANCAs and C3/C4 have been sent. At this point, give her labile blood pressure and what could be a TIA, I think transfer is warranted. I contacted Dr. Higgins at [facility] and they accepted the patient. Complicating the picture is the diffuse vasoconstriction involving both anterior and posterior circulation. Unclear to me why the posterior circulation would be involved with carotid involvement. The plan will be to get a conventional angiogram to better characterize the dissections. With vasoconstriction involved, we are tying to keep her blood pressure within very tight parameters in order to prevent hypoperfusion but also to prevent extension of the dissections. The patient did note to me this morning that she has recently started Yoga and has felt very sore. She denies any trauma, excessive coughing or sneezing. She has an older sister who is "very flexible" but no other family history of joint laxity, aortic aneurysms, Marfans or EDS. We will continue the ASA and nicardipine drip. She will calll me when she returns from [place] and I will schedule her into my clinic. I spent 1.5 hours today in the ICU in direct patient care.
[2019-03-06] MEDS ORDERED: Metoprolol Tartrate IV* 1 MG/ML 5 ML VIAL IV SCH ×2 (11:00)
[2019-03-06] MEDS ORDERED: Aspirin 81 mg CHEW TAB* 81 MG TAB.CHEW PO SCH (11:00)
[2019-03-06] MEDS ORDERED: Lorazepam PYXIS KEY ONE ×2 (11:19→12:42)
[2019-03-06] MEDS ORDERED: LORazepam INJ* 2 MG/ML 1 ML VIAL ONE ×2 (11:19→12:43)
[2019-03-06] MEDS: Aspirin EC TAB* 325 MG PO ONE (11:55)
[2019-03-06 12:51] VITALS: BP 130/95
[2019-03-06] MEDS ORDERED: LORazepam INJ* 2 MG/ML 1 ML VIAL IV PUSH ONE (13:06)
--- NOTE | 2019-03-06 14:29 | DS ---
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 She has had 4 days of headache, neck pain, neck stiffness, rash, blurry vision, photophobia, cough, urinary frequency and ear pain. Headache, ear pain, and feeling of intracranial pressure worsen when lying down or trying to ambulate. She was seen in the ED and her PCP office for these complaints and was trialed on Pseudophed and doxycycline. Her symptoms familed to improve and she presented to the ED on March 05. On evaulation in the ED she was noted to be hypertensive to 213/141 (no personal history of HTN). Remaining vital signs stable. Physical exam was unremarkable. Neuro exam within normal limits. An LP was done. Labs notable for CBC 14. CT and CTA brain shows diffusely decreased caliber of the intracranial arterial circulation (anterior and posterior). Neurology consulted. She was admitted for hypertensive emergency and intractable headache. Intially bolused with Labetalol, however transitioned to Nicardipine gtt overnight to maintain BP within tight goals of SBP 150-160 and DBP 85-95. Required IVF bolus for hypotension. MR report returned with bilateral carotid artery dissection. No infarct. UR contacted overnight for possible transfer however they felt that unless the patient stroked, they wouldn't be doing anything differently so did not accept the transfer. 03/06: Pt remains symptomatic, no improvement with lowered BP. On nicardipine gtt. Complaining of shortness of breath when ambulating to bathroom and nursing notes HR bumps to 140s when gets up out of bed. Pt reported to Neurology today that she had an episode of double vision which spontaneously resolved; concerning for a TIA. Neurology (Dr. Briceno) spoke with [facility] team and they have accepted the patient. Arrangements being made for transfer. Physical Exam: Gen: alert, resting comfortably HEENT: intact Lungs: nonlabored Cardiac: tachycardic, regular Abdomen: nondistended Extremities: dry, no edema Neuro: alert and oriented Data review: labs and xrays reviewed Consults: Neurology Procedures: None Significant diagnostic studies: 03/05 CTA neck: mid distal LICA with severe luminal narrowing to approximately 70% distally. mural thrombus/dissection also involves the proximal left petrous interal carotid artery. Approximately 50% luminal narrowing of the distal SHAQUILLE wtih mural thrombus/dissection. Moderate stenosis of the V4 segment of the left vertebral artery. Near effacement of left pyriform sinus. MR brain: micreased signal intesity surrounding bilateral extracarnial carotid arteries concerning for dissection. No restricted diffusion to suggest acute infarct. CTA head & CT brain: Diffusely decreased caliber of the intracranial arterial circulation. Posterior communicating arteries are dimmunitive if present Treatments: Nicardipine gtt for BP control ASA for antiplatelet tx of carotid dissection Ativan & versed PRN for anxiety Disposition: transferred to [facility] stroke service Summary took approximately 15 min
[2019-03-07 17:39] LABS: HSV 1 PCR, CSF Negative (Negative); HSV 2 PCR, CSF Negative (Negative)
[2019-03-07 23:04] LABS: Complement C3 120 mg/dL (75 - 175)
[2019-03-08 12:21] LABS: Albumin 4510 mg/dL; CSF Albumin 25.1 mg/dL (<=27.0); CSF IGG 3.1 mg/dL (<=8.1); Immunoglobulin G 1160 mg/dL (767 - 1590)
[2019-03-08 15:49] LABS: Oligoclonal Proteins Interpret 0 bands (<4)
== END 2019-03-06 13:25 | disposition short-term general hospital (02) | DRG 199 ==
LOC: ED 09:29 → ICU 17:15
PROVIDERS: ADMIT Internal Medicine; ATTEND Internal Medicine Critical Care Medicine
PROC: 009U3ZX Drainage of Spinal Canal, Percutaneous Approach, Diagnostic (ICD-10-PCS; principal; 2019-03-05)
DX: I16.1 Hypertensive emergency (principal); I77.71 Dissection of carotid artery; I67.841 Reversible cerebrovascular vasoconstriction syndrome; G45.9 Transient cerebral ischemic attack, unspecified; J81.1 Chronic pulmonary edema; D64.9 Anemia, unspecified; J32.9 Chronic sinusitis, unspecified; F41.9 Anxiety disorder, unspecified; F32.9 Major depressive disorder, single episode, unspecified; G47.33 Obstructive sleep apnea (adult) (pediatric); G43.909 Migraine, unspecified, not intractable, without status migrainosus; Z99.89 Dependence on other enabling machines and devices; Z79.3 Long term (current) use of hormonal contraceptives; Z79.899 Other long term (current) drug therapy; Z91.011 Allergy to milk products; Z82.49 Family history of ischemic heart disease and other diseases of the circulatory system; Z82.3 Family history of stroke
CPT/HCPCS: 36415; 70450; 70496; 70498; 70553; 71045; 80048; 80053; 81003; 81015; 82784; 82945; 83516; 83605; 83916; 84132; 84157; 84484; 85025; 85610; 85730; 86160; 86618; 87040; 87070; 87205; 87529; 87641; 87899; 89051; 94660; 99285; A9270-GY; A9579; J1100; J1200; J1650; J1885; J2060; J2765; J3360; J3475; J3490; Q9967